=== PATIENT | male | born 1955 | race Caucasian/White ===

== ENCOUNTER 2020-01-31 07:28 | Emergency (ER) | payer OTHER, SELFPAY ==
[2020-01-31 07:33] VITALS: BP 135/83; PULSE 61; RESP 20; TEMP 36.5; O2SAT 97; BMI 35.4
--- NOTE | 2020-01-31 07:37 | ED_ITS ---
HPI - Abdominal Pain General: Chief Complaint: Abdominal Pain Stated Complaint: POSS KIDNEY STONES Time Seen by Provider: 01/31/20 07:32 Source: patient Mode of arrival: ambulatory Limitations: no limitations History of Present Illness: HPI narrative: Patient comes in today for complaints of left flank pain radiating down into his groin. Patient reports that the pain is similar to her previous kidney stone that he had in 2002. Patient reports that symptoms started last night. Patient states this morning he had severe episode of pain that caused him to become faint. Patient does not feel bad now but continues to have left lower quadrant pain that starts in his left flank and radiates around. Review of Systems General: Reports: 10 or more systems reviewed and unremarkable except in HPI and below : Reports: flank pain PFSH ED PFSH: Social History Smoking and tobacco status: never smoked Physical Exam Const: COMMON NORMALS: no acute distress and patient oriented x3 GENERAL APPEARANCE: cooperative HENMT: COMMON NORMALS: normocephalic and Normal external nose present HEAD & SCALP: normal to inspection and normocephalic NOSE: Normal external nose present Eye: GENERAL EYE: appearance normal, both eyes and all related structures Neck/C-Spine: COMMON NORMALS: full ROM Chest: COMMONS NORMALS: normal inspection of the chest Resp: COMMON NORMALS: normal respiratory effort EFFORT & INSPECTION: Yes able to speak in complete sentences Cardio: COMMON NORMALS: regular rate and regular rhythm RATE: regular rate RHYTHM: regular rhythm GI: COMMON NORMALS: non-tender : COMMON NORMALS: Yes no CVA tenderness BLADDER/KIDNEY EXAM: Yes no CVA tenderness Back/Pelvis: COMMON NORMALS: no CVA tenderness and thoracic and lumbar spine normal to inspection Extremity: COMMON NORMALS: normal to inspection Neuro: COMMON NORMALS: patient oriented x3 and moves all extremities Psych: COMMON NORMALS: mental status grossly normal and cooperative Skin: COMMON NORMALS: no rashes or lesions noted GENERAL SKIN EXAM: no rashes or lesions noted Course Vital Signs: Vital signs: Vital Signs Temperature 97.7 F 01/31/20 07:33 Pulse Rate 61 01/31/20 07:33 Respiratory Rate 20 H 01/31/20 07:55 Blood Pressure 135/83 01/31/20 07:33 Pulse Oximetry 98 01/31/20 07:55 MDM - Abdominal Pain MDM Narrative: Medical decision making narrative: Patient comes in today for complaints of left flank pain radiating into his groin. Patient appears well. Patient appears in moderate pain. Exam has no significant CVA tenderness or abdominal pain. Vital signs are normal. Differential diagnosis includes cystitis, renal colic, ureteral stone, prostatitis. CBC was normal. CMP was normal except for some mild elevation in alk phos. CT scan of the abdomen and pelvis for kidney stone noted a stone in the left bladder, with no hydronephrosis. Reviewed exam with patient with recommendations for follow-up. Patient reports understanding agreed to plan. Lab Data: Labs: Lab Results 01/31/20 01/31/20 01/31/20 Range/Units 07:49 07:49 08:28 WBC 9.2 (4.0-10.0) 10^3/ uL RBC 5.43 H (4.1-5.3) 10^6/u L Hgb 16.4 (11.7-16.6) g/dL Hct 48.3 (42.0-52.0) % MCV 89.0 (80-94) fL MCH 30.2 (28.0-34.0) pg MCHC 34.0 (30.0-36.0) g/dL RDW 12.8 (12.1-15.1) % Plt Count 174 (130-400) 10^3/c mm MPV 10.5 H (7.4-10.4) fL Neut % (Auto) 79.4 % Lymph % (Auto) 11.5 % [place] % (Auto) 8.2 % Eos % (Auto) 0.4 % Baso % (Auto) 0.1 % Neut # (Auto) 7.3 (1.8-7.7) 10^3/u L Lymph # (Auto) 1.1 (0.8-4.8) 10^3/u L [place] # (Auto) 0.8 (0.2-0.9) 10^3/u L Eos # (Auto) 0.0 (0.0-0.8) 10^3/u L Baso # (Auto) 0.0 (0.0-0.1) 10^3/u L Nucleated RBC % (a uto) 0 % Nucleated RBCs # 0.0 /100WBC Sodium 138 (136-145) mmol/L Potassium 3.9 (3.5-5.1) mmol/L Chloride 105 (98-107) mmol/L Carbon Dioxide 21 L (22-29) mmol/L Anion Gap 15.9 (5-19) BUN 13 (8-23) mg/dL Creatinine 1.2 (0.7-1.2) mg/dL GFR Calculation 61.3 L (90-130) mL/min Glucose 99 (65-115) mg/dL Calculated Osmolal ity 282 L (285-295) mOsm/k g Calcium 9.6 (8.5-10.5) mg/dL Total Bilirubin 0.6 (0.15-1.2) mg/dL AST 24 (0-40) U/L ALT 20 (0-41) U/L Alkaline Phosphata se 170 H (40-130) IU/L Total Protein 7.2 (6.6-8.7) g/dL Albumin 4.5 (3.5-5.2) g/dL Globulin 2.7 (1.3-4.6) g/dL Urine Color Yellow (Yellow) Urine Appearance Sl hazy (CLEAR) Urine pH 5 (5-7) Ur Specific Gravit y 1.025 (1.005-1.030) Urine Protein Neg (Negative) Urine Glucose (UA) Trace H (Normal) Urine Ketones Negative (Negative) Urine Blood 3+ H (Negative) Urine Nitrate Negative (Negative) Urine Bilirubin Neg (NEGATIVE) Urine Urobilinogen Norm (Negative) mg/dL Ur Leukocyte Latisha ase Negative (Negative) Urine RBC 50-80 H (0-2) /hpf Urine WBC 0-4 H (0-5) /hpf Ur Squamous Epith Cells 0-4 H (0-5) Amorphous Sediment Trace Urine Bacteria 1+ H (NONE) Hyaline Casts 0-4 H Urine Mucus 1+ Discharge Plan Discharge Patient Disposition: Home, Self-Care Clinical Impression: Renal calculi Condition: Stable Prescriptions: New hydrocodone-acetaminophen 5-325 mg tablet 1 tab PO Q6H PRN (Reason: pain) Qty: 7 RF: 0 ondansetron HCl 4 mg tablet 4 mg PO TID PRN (Reason: nausea and vomiting) Qty: 7 RF: 0 tamsulosin 0.4 mg capsule 0.4 mg PO DAILY Qty: 10 RF: 0 Discharge Orders: Discharge Order (Routine); Ordered 01/31/20 Ordered By: Caleb Garcia Discharge Diet: Usual diet Discharge Activity: Increase activity as tolerated Patient Instructions: Renal Colic (ED) Activity Restrictions/Additional Instructions: Drink plenty of water. Activity as tolerated. Follow-up with primary care in 1 week. Case management will assist you with follow-up for urology. Return to the ER for high fever or uncontrolled symptoms. Coding Level of Care Code ED It Risk And Assurance Senior Manager for Taye Fwd Exam Comprehensive
--- NOTE | 2020-01-31 07:43 | CT_ITS ---
WS: [id number] CT kidney stone [id number] REASON FOR EXAM: left flank, lower abd pain IV CONTRAST ADMINISTERED: None. TOTAL EXAM DLP: 1551.[address] scans at [facility] use at least one of these dose optimization techniques: automat ed exposure control; mA and/or kV adjustment per patient size (includes targeted exams where dose is matched to clinical indication); or iterative reconstruction. FINDINGS: Small hiatal hernia. Mediastinum normal scattered granulomas both lower lung patton. The liver is prominent no masses in the liver are seen. The stomach showed food debris but and mildly dilated but no obstruction. The gallbladder showed no stones and was normal. The spleen was normal. The adrenal glands right left were normal. The aorta and inferior vena cava appear to be of normal size. The right and left kidneys show a 2 mm stone in the collecting system of the right kidney and a hypod ense lesion over the superior pole of the left kidney measured 7 9 cm appears to be a cyst. The ureters on both the right and left side were of normal size. The appendix was normal the right colon show no abnormalities. Small bowel pattern were normal. Umbilical hernia with fat in the hernia no bowel. Small in size. The descending colon was normal. In the bladder there is a calcified density consistent with a stone in the bladder measures 1.42 mm. The prostate was normal the rectum normal. IMPRESSION: Stone on the left side of the urinary bladder Prominent cyst of the left kidney Small stone in the parenchyma of the right kidney Small hiatal hernia.
[2020-01-31] MEDS: ketorolac 30 mg/mL INJ 15 MG IVP (07:53)
[2020-01-31 07:55] VITALS: RESP 20; O2SAT 98
[2020-01-31] MEDS: morphine 4 mg/mL SDV 1 mL 2 MG IVP (07:55)
[2020-01-31 08:01] LABS: Basophils % 0.1 %; Eosinophils % 0.4 %; Hematocrit 48.3 % (42.0-52.0); Hemoglobin 16.4 g/dL (11.7-16.6); Lymphocytes # 1.1 10^3/uL (0.8-4.8); Lymphocytes % 11.5 %; Mean Corpuscular Hemoglobin 30.2 pg (28.0-34.0); Mean Platelet Volume 10.5 fL (7.4-10.4); Monocytes # 0.8 10^3/uL (0.2-0.9); Monocytes % 8.2 %; Neutrophils # 7.3 10^3/uL (1.8-7.7); Neutrophils % 79.4 %; Nucleated Red Blood Cells % 0 %; Platelet Count 174 10^3/cmm (130-400); Red Blood Count 5.43 10^6/uL (4.1-5.3); Red Cell Distribution Width 12.8 % (12.1-15.1); White Blood Count 9.2 10^3/uL (4.0-10.0)
[2020-01-31 08:14] LABS: Alanine Aminotransferase 20 U/L (0-41); Albumin Level 4.5 g/dL (3.5-5.2); Alkaline Phosphatase 170 IU/L (40-130); Anion Gap 15.9 (5-19); Aspartate Amino Transferase 24 U/L (0-40); Blood Urea Nitrogen 13 mg/dL (8-23); Calcium 9.6 mg/dL (8.5-10.5); Carbon Dioxide 21 mmol/L (22-29); Chloride 105 mmol/L (98-107); Globulin 2.7 g/dL (1.3-4.6); Glomerular Filtration Rate 61.3 mL/min (90-130); Glucose 99 mg/dL (65-115); Osmolality Calculated 282 mOsm/kg (285-295); Potassium 3.9 mmol/L (3.5-5.1); Sodium 138 mmol/L (136-145); Total Bilirubin 0.6 mg/dL (0.15-1.2); Total Protein 7.2 g/dL (6.6-8.7)
[2020-01-31 09:30] LABS: Add Urine Microscopic? YES; Bilirubin Urine Neg (NEGATIVE); Blood Urine 3+ (Negative); Glucose Urine UA Trace (Normal); Ketones Urine Negative (Negative); Leukocyte Esterase Urine Negative (Negative); Nitrate Urine Negative (Negative); Protein Urine Neg (Negative); Specific Gravity, Urine 1.025 (1.005-1.030); Urine Appearance SL Hazy (CLEAR); Urine Color Yellow (Yellow); Urobilinogen Urine Norm (Negative); pH Urine 5 (5-7)
[2020-01-31 09:31] LABS: RBC Urine 50-80 /hpf (0-2); Squamous Epithelial Cell Urine 0-4 (0-5); WBC Urine 0-4 /hpf (0-5)
[2020-01-31 09:32] LABS: Bacteria Urine 1+
[2020-01-31 09:33] LABS: Mucus Urine 1+
[2020-01-31 09:34] LABS: Add Urine Culture? Yes; Amorphous Sediment Urine TRACE; Hyaline Casts Urine 0-4
[2020-01-31 09:55] VITALS: BP 120/90; PULSE 78; RESP 18; O2SAT 97
--- NOTE | 2020-02-01 10:23 | DCPLANNER ---
compliance program manager had message to schedule a follow up appointment for patient with Dr. Longo. compliance program manager called the office of Dr. Longo, spoke with Alysia, gave clinic patients information. compliance program manager was told that patients information would be printed and given to Juju for review. Clinic will call patient with appointment information.
--- NOTE | 2020-02-13 07:56 | DCPLANNER ---
Patient had a follow up appointment scheduled for 02.04.[address] Longo. Patient did attend the appointment.
== END 2020-01-31 09:56 | disposition home or self-care (01) ==
PROVIDERS: Emergency Provider Nurse Practitioner Family
DX: N20.0 Calculus of kidney (principal)
CPT/HCPCS: 12345; 74176; 80053; 81001; 85025; 87086; 96374; 96375; 99282; 99283; J1885; J2270

== ENCOUNTER 2020-02-04 13:12 | Outpatient (CLI) | payer OTHER, SELFPAY ==
--- NOTE | 2020-02-04 13:15 | XRR_ITS ---
PROCEDURE INFORMATION: Exam: XR Abdomen, 1 View Exam date and time: 02/04/2020 1:31 PM Age: 64 years old Clinical indication: Condition or disease; Other: Calculi TECHNIQUE: Imaging protocol: XR of the abdomen. Views: Frontal supine view of the abdomen. 1 View. COMPARISON: CT kidney stone [id number] 01/31/2020 7:51 AM FINDINGS: Gastrointestinal tract: Normal. No bowel dilation. Bones/joints: Unremarkable. A caliceal stone is present in the central collecting system the right kidney measuring 4.4 mm. XR/XR KUB [id number] IMPRESSION: No acute findings. Caliceal stone central collecting system right kidney
== END 2020-02-04 13:13 | disposition home or self-care (01) ==
LOC: RAD 13:15
PROVIDERS: Visit Provider Nurse Practitioner Family
DX: N20.0 Calculus of kidney (principal)
CPT/HCPCS: 36415; 74018; 81001; 84153

== ENCOUNTER 2022-01-28 08:54 | Outpatient (CLI) | payer OTHER, SELFPAY | END 2022-01-28 08:55 | disposition home or self-care (01) | PROVIDERS: Visit Provider Urology | DX: R97.20 Elevated prostate specific antigen [PSA] (principal) | CPT/HCPCS: 84153 ==

== ENCOUNTER 2022-02-04 08:51 | Outpatient (CLI) | payer OTHER, SELFPAY ==
--- NOTE | 2022-02-04 09:04 | XR_ITS ---
WS: [id number] Exam: XR KUB [id number] Date/Time of Exam: 02/04/2022 9:10 AM Reason For Exam: stone Comparison 02/04/2020. 3 mm calcification superimposes the right kidney and probably represents a small stone. No bowel obst ruction or free air. No sign of organ enlargement. Small bilateral pelvic calcifications noted which are nonspecific. Bony structures are intact. XR/XR KUB [id number] IMPRESSION: 1. 3 mm calcification superimposes the right kidney and may represent a small r enal stone. Nonspecific bilateral pelvic calcifications. 2. No acute abdominal process.
== END 2022-02-04 08:52 | disposition home or self-care (01) ==
LOC: RAD 08:53
PROVIDERS: Visit Provider Urology
DX: N20.0 Calculus of kidney (principal); R97.20 Elevated prostate specific antigen [PSA]; R39.89 Other symptoms and signs involving the genitourinary system
CPT/HCPCS: 74018; 99202; 99214

== ENCOUNTER → 2022-02-17 13:47 | Outpatient (BNVA) | payer OTHER, SELFPAY | PROVIDERS: Visit Provider Urology | DX: R97.20 Elevated prostate specific antigen [PSA] (principal); R39.89 Other symptoms and signs involving the genitourinary system | CPT/HCPCS: 55700; 76872; 76942; 88305 ==

== ENCOUNTER 2022-03-08 08:37 | Outpatient (CLI) | payer OTHER, SELFPAY ==
[2022-03-08 09:31] LABS: Blood Urea Nitrogen 11 mg/dL (8-23); Glomerular Filtration Rate 67.4 mL/min (90-130)
[2022-03-08] MEDS: iohexol 350 mg/mL 100 mL Btl IV (09:56)
--- NOTE | 2022-03-08 10:30 | NM_ITS ---
WS: [id number] NUCLEAR MEDICINE WHOLE BODY BONE SCAN HISTORY: Elevated PSA, Abnormal Prostate Exam COMPARISON: CT abdomen and pelvis 03/08/2022 TECHNIQUE: The patient was injected with 24.7 mCi of Technetium 99m HDP and serial whole-body scintig parveen have been performed with anterior and posterior images. Additional large field of view imaging i nvolving the ribs and thoracic spine. Focal area of moderate intense uptake involving the LEFT anterior fourth rib. Additional similar upta ke involving the RIGHT T6 pedicle and the LEFT T7 pedicle or medial rib. No additional abnormality is noted within the ribs or spine. Mild degenerative changes at the ankles and mid tarsal articulations. Mild AC joint and glenohumeral joint arthritis. Normal soft tissue uptake in the kidneys. [place]/NM bone scan whole body* [id number] IMPRESSION: 1. Immediate foci of increased uptake involving the LEFT anterior fourth rib, LEFT T7 pedicle/rib and the RIGHT T6 pedicle. These may represent early metasta tic lesions from prostate cancer. These would probably not be visible radiograp hically therefore no radiograph performed today. A chest CT was recommended to evaluate the RIGHT interlobar enlarged lymph node as seen on the CT of the abdo men performed on 03/08/2022. This chest CT would better characterize the rib and thoracic lesions. 2. Mild degenerative changes at the ankles and feet and AC joints.
--- NOTE | 2022-03-08 13:30 | CT_ITS ---
WS: [id number] CT ABDOMEN AND PELVIS WITH AND WITHOUT CONTRAST HISTORY: Elevated PSA, Abnormal Prostate Exam TECHNIQUE: Unenhanced 5 mm axial imaging first performed through the abdomen. Post contrast imaging t hrough the abdomen and pelvis. Oral contrast has not been provided. Sagittal and coronal reformats a re submitted. MIP coronal delayed imaging. All CT scans at [facility] use at least one of thes e dose optimization techniques: automated exposure control; mA and/or kV adjustment per patient size (includes targeted exams where dose is matched to clinical indication); or iterative reconstruction. CONTRAST: Omnipaque 350; 95 mL IV. DLP: 3975.33 mGy.cm COMPARISON: 01/31/2020 noncontrast exam. Benign granuloma LEFT lower lobe. Seen only on the venous phase is a 15 mm RIGHT interlobar lymph nod e which is incompletely visualized. Heart size is normal. RIGHT kidney: Very mild perinephric stranding. Nonobstructing renal calcifications. At least 3 calcif ications are identified with the largest measuring 5 mm. No solid mass or obstruction. Good excretion from the kidney. No uroepithelial lesion or soft tissue mass identified. Distal ureter is not disten ded with contrast. LEFT kidney: Mild perinephric stranding around the LEFT kidney. No renal calcification or obstruction . Lobulated nonenhancing cyst from the upper pole measures 4.5 x 4.0 cm. No enhancing lesions. No uro epithelial lesion. Very distal ureters are not distended with contrast. Minimally distended urinary bladder. On the postcontrast images no areas of abnormal enhancement. The re is very mild bladder wall thickening which is probably due to underdistention. No filling defect o n the delayed images. Prostate gland is very minimally prominent measuring 3.5 x 4.1 x 5.2 cm. There is some variable enhan cement within the prostate gland especially involving the central and posterior RIGHT prostate gland. Seminal vesicles are mildly prominent. Liver and spleen are normal size. Splenic granulomata. Normal portal vein. Mildly contracted gallblad to. Normal pancreas. Normal adrenal glands. Mild atherosclerosis aorta. Good enhancement of the mese nteric arteries. No aneurysm. Mild atherosclerosis extends into the common iliac arteries. No ascites. No mesenteric or retroperitoneal adenopathy. No omental stranding. No GI tract obstruction. The appendix is normal. No colon obstruction. Supraumbilical abdominal wall hernia contains a loop of small bowel but there is no obstruction at th is time. The entire lumen is not protruding through the hernia. Additional small fat-containing umbil ical hernia. No osteoblastic or osteolytic bone lesions. Benign stable bone island RIGHT hip. CT/CT abdomen pelvis wo/w [id number] IMPRESSION: 1. No renal obstruction or solid mass. 2. Lobulated cyst upper pole LEFT kidney measures 4.5 x 4.0 cm. 3. RIGHT interlobar mildly enlarged lymph node. Lymph node is only partially v isualized on the venous phase. Recommend follow-up chest CT with IV contrast. T his is an abnormally enlarged lymph node. Reactive versus neoplastic. 4. Mildly heterogeneous prostate gland minimal enhancement in the RIGHT latera l posterior prostate. Minimal enlargement. 5. Negative urinary bladder. 6. Supraumbilical abdominal wall hernia contains contains a partial small kendall l loop. No obstruction at this time.
== END 2022-03-08 08:38 | disposition home or self-care (01) ==
LOC: RAD 08:39
PROVIDERS: Visit Provider Urology
DX: R39.89 Other symptoms and signs involving the genitourinary system (principal); R97.20 Elevated prostate specific antigen [PSA]; Q61.01 Congenital single renal cyst; K43.9 Ventral hernia without obstruction or gangrene
CPT/HCPCS: 74178; 78306; 82565; 84520; A9561

== ENCOUNTER → 2022-03-16 15:53 | Outpatient (BNVA) | payer OTHER, SELFPAY | PROVIDERS: Visit Provider Urology | DX: C61 Malignant neoplasm of prostate (principal); N20.9 Urinary calculus, unspecified | CPT/HCPCS: 99214 ==

== ENCOUNTER 2022-03-25 08:21 | Day surgery (SDC) | payer OTHER, SELFPAY ==
[2022-03-23 12:09] VITALS: BMI 34.7
[2022-03-25 08:48] VITALS: BP 145/101; PULSE 82; RESP 16; TEMP 36.5; O2SAT 95
[2022-03-25] MEDS: sodium chloride 0.9% 1,000 ML 30 ML IV (08:57)
--- NOTE | 2022-03-25 09:06 | ANES.PREANE2 ---
Pre-Anesthetic Assessment Height/Weight: Height 1.75 m Weight 106.594 kg Temp Pulse Resp BP Pulse Ox O2 Del Method 97.7 F 82 16 145/101 95 03/25/22 08:48 03/25/22 08:48 03/25/22 08:48 03/25/22 08:48 03/25/22 08:48 03/25/22 08:48 Operation Date: 03/25/22 10:00 Proposed Procedures p Colonoscopy 20201,z12.11(Not Applicable) - Roger Lam DO Familial anesthetic complications: None Was Beta Carley taken within 24 hours: N/A Was Clonidine taken within 24 hours: N/A Last intake: Intake Last Liquid Date 03/24/22 Last Liquid Time 20:00 Last Solid Date 03/23/22 Last Solid Time 20:00 Social No alcohol and No tobacco Exam alert, oriented x 3, clear to auscultation bilaterally and regular rate & rhythm Airway Mallampati: Class II Dentition: other (missing) Comments: Comments: Full franco metatatic prostate cancer Anesthetic Plan ASA status: 3 Anesthesia: MAC Risk of > 500 ml blood loss (7ml/kg in children): No Medications/Allergies Home Medications Medication Instructions Recorded Confirmed Last Taken Type cholecalciferol (vitamin D3) 10 10 mcg PO DAILY 02/04/22 03/25/22 03/23/22 History mcg (400 unit) capsule bicalutamide 50 mg tablet (Casodex) 50 mg PO DAILY Metastatic prostate 03/23/22 03/25/22 03/23/22 History cancer Allergies Allergy/AdvReac Type Severity Reaction Status Date / Time No Known Allergies Allergy Verified 03/25/22 08:47 Current Medications Generic Name Dose Route Start Last Admin Trade Name Freq PRN Reason Stop Dose Admin Sodium Chloride 1,000 mls @ 30 mls/hr 03/25/22 08:30 03/25/22 08:57 Sodium Chloride 0.9% IV 03/26/22 08:29 30 mls/hr .Q24H LAURI Administration PFSH Anesthesia Medical History (Updated 03/17/22 @ 12:50 by Kevin Longo MD) Abnormal prostate exam Calculus of distal left ureter Urolithiasis Surgical History (Updated 03/17/22 @ 12:50 by Kevin Longo MD) Hx of colonoscopy 14 yrs ago Family History Family/Other Hypertension Father , AT AGE 84 Hypertension Mother No problems noted. Social History Smoking and tobacco status: never smoked Alcohol intake: never Marital status: Current occupational status: retired History of recent travel: No Data Anesthesia Cardiac Studies: No Data to Display
--- NOTE | 2022-03-25 09:25 | P.HP_ITS ---
Providers/Chief Complaint Chief Complaint: Colon cancer screening History of Present Illness Baltazar Ramirez is a 66 year old male who presents for his second screening colonoscopy. His first 1 was within normal limits. He has no complaints. Nothing has changed since his last H&P Review of Systems General: Reports: 10 or more systems reviewed and unremarkable except in HPI and below Medications/Allergies Home Medications Medication Instructions Recorded Confirmed Last Taken Type cholecalciferol (vitamin D3) 10 10 mcg PO DAILY 02/04/22 03/25/22 03/23/22 History mcg (400 unit) capsule bicalutamide 50 mg tablet (Casodex) 50 mg PO DAILY Metastatic prostate 03/23/22 03/25/22 03/23/22 History cancer Allergies Allergy/AdvReac Type Severity Reaction Status Date / Time No Known Allergies Allergy Verified 03/25/22 08:47 PFSH Acute PFSH: Medical History Abnormal prostate exam Calculus of distal left ureter Urolithiasis Surgical History Hx of colonoscopy 14 yrs ago Family History Family/Other Hypertension Father , AT AGE 84 Hypertension Mother No problems noted. Social History Smoking and tobacco status: never smoked Alcohol intake: never Marital status: Current occupational status: retired History of recent travel: No Vitals/I&O/Wt Last Vital Signs Temp 97.7 F 03/25/22 08:48 Pulse 82 03/25/22 08:48 Resp 16 03/25/22 08:48 BP 145/101 03/25/22 08:48 Pulse Ox 95 03/25/22 08:48 O2 Del Method 03/25/22 08:48 Weight last 48 hrs Weight 235 lb Physical Exam Narrative: General : Patient is well developed , no acute distress, oriented x3 Head : Normal cephalic, a-traumatic. Ears : Pinnae and external canal are normal. Hearing is normal. Eyes : PERRLA, Sclera and injection are normal. No conjunctival discharge. Nose : Mucous membranes are without erythema. Throat : buccal mucosa is normal, gums are without significant recession or hypertrophy. Lungs : Equal chest rise bilaterally, no use of accessory muscles, trachea is midline. Cor : Rate and rhythm are normal. Abdomen : Soft, ND, NT, no g/r/m Extremities : No edema, no cyanosis or clubbing, dorsalis pedis pulses are present bilaterally, non-tender to palpation of calves. Upper extremities are normal bilaterally. Back : non-tender to palpation, no CVA tenderness. Neuro : CN II - XII intact, Upper and lower extremities have equal and full strength A&P Assessment and plan (1) Colon cancer screening: Status: Acute Plan Colonoscopy The risks and benefits of the procedure, including bleeding, infection, intestinal perforation requiring surgery, missed lesion, or explained to the patient. He is understanding of the risks and wishes to proceed. Attestations Medical Necessity Statement*: Patient will be discharged home after the procedure Coding Level of Care Code Acute Violin Mechanic for Taye Da Silva Diagnoses Colon cancer screening Z12.11
[2022-03-25 10:15] VITALS: BP 112/77; PULSE 76; RESP 18; TEMP 36.1; O2SAT 91
[2022-03-25 10:27] VITALS: BP 139/82; PULSE 78; RESP 18; TEMP 36.3; O2SAT 92
--- NOTE | 2022-03-25 12:48 | ANE.PACU2 ---
Inpatient post-anesthesia follow up: Airway intact: Yes Vital signs: Temperature 97.4 F Pulse Rate 78 Respiratory Rate 18 Blood Pressure 139/82 Pulse Oximetry 92 Oxygen Delivery Me thod Room Air Oxygen Flow Rate 2 Fraction of Inspir ed Oxygen Hydration adequate: Yes Nausea and vomiting: No Pain level: 1 Mental status: Baseline
== END 2022-03-25 10:40 | disposition home or self-care (01) ==
PROVIDERS: Visit Provider Surgery
PROC: 0DJD8ZZ Inspection of Lower Intestinal Tract, Via Natural or Artificial Opening Endoscopic (ICD-10-PCS; CPT 45378; principal; 2022-03-25 10:00)
DX: Z12.11 Encounter for screening for malignant neoplasm of colon (principal); K64.1 Second degree hemorrhoids; C61 Malignant neoplasm of prostate
CPT/HCPCS: 45378; J2704; J7030

== ENCOUNTER 2022-04-12 15:00 | Oncology outpatient (recurring) (ONCR) | payer OTHER, SELFPAY ==
[2022-04-12] MEDS: leuprolide 22.5 mg Kit IM (15:28)
[2022-04-12 15:35] VITALS: BP 145/101; PULSE 84; RESP 18; TEMP 37.2; O2SAT 97
== END 2022-04-28 23:59 | disposition home or self-care (01) ==
PROVIDERS: Visit Provider Internal Medicine Hematology & Oncology
DX: Z51.11 Encounter for antineoplastic chemotherapy (principal); C61 Malignant neoplasm of prostate; R97.21 Rising PSA following treatment for malignant neoplasm of prostate
CPT/HCPCS: 96402; 99205; J9217

== ENCOUNTER 2022-04-22 10:56 | Outpatient (CLI) | payer OTHER, SELFPAY ==
--- NOTE | 2022-04-22 11:00 | CT_ITS ---
WS: [id number] CT CHEST WITH INTRAVENOUS CONTRAST HISTORY: INTERLOBAR ENLARGED LYMPH NODE TECHNIQUE: Contiguous 5 mm axial imaging performed on the thorax. Coronal and sagittal reformats are submitted. All CT scans at [facility] use at least one of these dose optimization techniques: automated exposure control; mA and/or kV adjustment per patient size (includes targeted exams where dose is matched to clinical indication); or iterative reconstruction. CONTRAST: Omnipaque 350; 95 mL IV. DLP: 766.63 mGy.cm COMPARISON: Bone scan 03/08/[address] 03/08/2022 Lungs and central airway: Lungs are well-aerated. No mass, pulmonary nodule or pneumonia. No pleural effusion. Pleura: Normal. No pleural effusion. Heart and pericardium: Normal size heart with no pericardial effusion. Mediastinum and rayray: Indeterminate bilateral hilar lymph nodes. The largest group of lymph nodes at the LEFT hilum measures 3.4 x 1.6 cm. Interlobar lymph node on the RIGHT measures 1.7 cm and was prev iously described. There is an additional interlobar lymph node on the LEFT measuring 1.5 cm. Several smaller lymph nodes at the AP window and inferior RIGHT paratracheal region. No axillary lymph nodes. Vessels: Normal size aortic and pulmonary artery. No coronary artery calcifications. Chest wall and lower neck: No soft tissue masses. Upper abdomen: Small hiatal hernia. Mild hepatic steatosis. Incompletely visualized LEFT renal cyst w as recently described. No adrenal mass. Osseous structures: Very small osseous sclerotic lesions are identified within the T2 vertebral body and the T10 vertebral body. Neither of these were positive on the recent bone scan but may be too sma ll to be apparent. CT/CT chest w con* [id number] IMPRESSION: 1. Hilar and interlobar lymphadenopathy. This may be reactive adenopathy. The largest lymph node at the LEFT hilum measures 3.4 x 1.6 cm. Consider [address] follow-up with IV contrast to evaluate for any interval change. 2. No lung mass or nodule.
[2022-04-22] MEDS: iohexol 350 mg/mL 100 mL Btl IV (11:17)
== END 2022-04-22 10:57 | disposition home or self-care (01) ==
PROVIDERS: Visit Provider Urology
DX: R59.0 Localized enlarged lymph nodes (principal)
CPT/HCPCS: 71260

== ENCOUNTER 2022-05-24 12:43 | Oncology outpatient (recurring) (ONCR) | payer OTHER, SELFPAY ==
[2022-05-11 10:18] LABS: Basophils % 0.3 %; Eosinophils # 0.1 10^3/uL (0.0-0.8); Eosinophils % 1.2 %; Hematocrit 45.2 % (42.0-52.0); Hemoglobin 15.6 g/dL (11.7-16.6); Lymphocytes # 1.2 10^3/uL (0.8-4.8); Lymphocytes % 20.4 %; Mean Corpuscular HGB Conc 34.5 g/dL (30.0-36.0); Mean Corpuscular Hemoglobin 30.6 pg (28.0-34.0); Mean Corpuscular Volume 88.6 fl (80-94); Monocytes # 0.5 10^3/uL (0.2-0.9); Monocytes % 9.2 %; Neutrophils # 3.98 10^3/uL (1.8-7.7); Neutrophils % 68.7 %; Nucleated Red Blood Cells % 0 %; Platelet Count 185 10^3/cmm (130-400); Red Cell Distribution Width 12.5 % (12.1-15.1); White Blood Count 5.8 10^3/uL (4.0-10.0)
[2022-05-11 10:56] LABS: Alanine Aminotransferase 17 U/L (0-41); Albumin Level 4.1 g/dL (3.5-5.2); Alkaline Phosphatase 144 U/L (40-130); Anion Gap 16.9 (5-19); Aspartate Amino Transferase 21 U/L (0-40); Blood Urea Nitrogen 10 mg/dL (8-23); Calcium 9.6 mg/dL (8.5-10.5); Carbon Dioxide 20 mmol/L (22-29); Chloride 103 mmol/L (98-107); Globulin 3.1 g/dL (1.3-4.6); Glomerular Filtration Rate 67.4 mL/min (90-130); Glucose 96 mg/dL (65-115); Osmolality Calculated 281 mOsm/kg (285-295); Potassium 3.9 mmol/L (3.5-5.1); Sodium 136 mmol/L (136-145); Testosterone Total 17.1 ng/dL (193-740); Total Bilirubin 0.5 mg/dL (0.15-1.2); Total Protein 7.2 g/dL (6.6-8.7)
--- NOTE | 2022-05-24 13:27 | N.ONRAD NP_ITS ---
Radiation Oncology Consultation Patient Name: Baltazar Ramirez Date of : 1955 Date of Service: 05/24/2022 Attending Physician: Fareed Dumont M.D. Baltazar Ramirez was seen in consultation this afternoon at the request of the [facility] for consideration of prostate radiotherapy in the management of a recently diagnosed very high-risk prostate cancer. He initially was identified to have an elevated PSA level (44.9 ng/mL) in December. A digital rectal exam performed by Kevin Longo M.D. described an enlarged prostate with induration of the right lateral apex of the prostate. A TRUS biopsy of the prostate gland performed on February 17, 2022 identified a hypoechoic right prostate lobe. Biopsy specimens diagnosed (the pathology report was personally reviewed in Expanse) an adenocarcinoma with a Amisha score of 4+5=9 (Grade Group 5) involving cores obtained from the right lateral mid gland, right lateral base, right base, left apex, left mid gland, and left base and a [place] score of 4+4 (Grade Group 4) within the right lateral apex, right apex, and left lateral mid gland. Perineural invasion was identified. A nuclear bone scintigraphy scan (independently reviewed in Synapse) reported a focal area of uptake involving the left anterior fourth rib, sixth thoracic vertebral body pedicle, and left seventh thoracic vertebral body pedicle. An abdominopelvic CT scan did not demonstrate metastatic disease. A thoracic CT described bilateral hilar and mediastinal lymphadenopathy. Small sclerotic lesions were present in T2 and T10 vertebral bodies. He was evaluated by medical oncology and androgen deprivation therapy was started (Casodex and Eligard). Cycle 1 of Eligard was administered on April 12, 2022. A recent PSA level was 2.9 ng/mL and testosterone was 17.1 ng/dL. The patient was referred for radiotherapy treatment options. I discussed the patient's AJCC clinical stage IIIC (T2bN0) very high-risk prostate cancer and the National Comprehensive Cancer Network Guidelines recommending androgen deprivation therapy, external beam radiotherapy with or without brachytherapy and consideration for docetaxel chemotherapy. The admonition by the NCCN was established by the RTOG 0521 trial that enrolled patients with high-risk non-metastatic prostate cancer to receive androgen suppression plus radiotherapy with or without adjuvant docetaxel chemotherapy. This study demonstrated improved overall survival and disease-free survival in the chemotherapy arm. I also reviewed GETUG???12 study which also enrolled high-risk localized prostate cancer patients to androgen suppression and docetaxel chemotherapy with estramustine or androgen suppression alone. Updated results published in abstract form continued to demonstrate a relapse free survival with the administration of chemotherapy. I will request a PSMA scan to evaluate the imaging findings described. I would endorse a 7/2-week course of radiotherapy which will be initiated following neoadjuvant hormonal therapy if the PSMA scan does not disclose metastatic disease. A planning CT scan with contrast will be acquired prior to implementation of radiation treatment to delineate the clinical target volumes. I reviewed the potential toxicities of pelvic radiotherapy. The patient has verbalized understanding would like to proceed as recommended. The patient's medical treatment plan was discussed with Malachi Lopez M.D. Signed by: Dr. Fareed Dumont 06/18/2022 8:53:06 AM
== END 2022-05-28 23:59 | disposition home or self-care (01) ==
PROVIDERS: Nurse Practitioner; PCP Emergency Medicine Emergency Medical Services; Visit Provider Radiology Radiation Oncology
DX: C61 Malignant neoplasm of prostate (principal); C79.51 Secondary malignant neoplasm of bone; R59.0 Localized enlarged lymph nodes; Z79.818 Long term (current) use of other agents affecting estrogen receptors and estrogen levels; Z79.899 Other long term (current) drug therapy
CPT/HCPCS: 36415; 80053; 84153; 84403; 85025; 99205; 99214

== ENCOUNTER → 2022-05-31 08:36 | Outpatient (BNVA) | payer OTHER, SELFPAY | PROVIDERS: PCP Emergency Medicine Emergency Medical Services; Visit Provider Internal Medicine Pulmonary Disease | DX: R59.0 Localized enlarged lymph nodes (principal); C61 Malignant neoplasm of prostate; Z87.891 Personal history of nicotine dependence | CPT/HCPCS: 99204 ==

== ENCOUNTER 2022-06-28 08:49 | Oncology outpatient (recurring) (ONCR) | payer OTHER, SELFPAY ==
--- NOTE | 2022-06-18 11:21 | ONCRAD EPV_ITS ---
Radiation Oncology Follow-Up Note Patient Name: Baltazar Ramirez Date of : 1955 Date of Service: 06/18/2022 Attending Physician: Fareed Dumont M.D. Baltazar Ramirez returned to my office to discuss the results of a recent PSMA scan. He initially was identified to have an elevated PSA level (44.9 ng/mL) in December. A digital rectal exam performed by Kevin Longo M.D. described an enlarged prostate with induration of the right lateral apex of the prostate. A TRUS biopsy of the prostate gland performed on February 17, 2022 identified a hypoechoic right prostate lobe. Biopsy specimens diagnosed (the pathology report was personally reviewed in Expanse) an adenocarcinoma with a Amisha score of 4+5=9 (Grade Group 5) involving cores obtained from the right lateral mid gland, right lateral base, right base, left apex, left mid gland, and left base and a Amisha score of 4+4 (Grade Group 4) within the right lateral apex, right apex, and left lateral mid gland. Perineural invasion was identified. A nuclear bone scintigraphy scan reported a focal area of uptake involving the left anterior fourth rib, sixth thoracic vertebral body pedicle, and left seventh thoracic vertebral body pedicle. An abdominopelvic CT scan did not demonstrate metastatic disease. A thoracic CT described bilateral hilar and mediastinal lymphadenopathy. Small sclerotic lesions were present in T2 and T10 vertebral bodies. He was evaluated by medical oncology and androgen deprivation therapy was started (Casodex and Eligard). Cycle 1 of Eligard was administered on April 12, 2022. A PSMA scan (requested from the outside hospital and independently reviewed in Synapse) ordered on June 14, 2022 revealed abnormal activity in the left anterior fourth rib that was associated with a sclerotic lesion. I discussed The National Comprehensive Cancer Network Guidelines for prostate cancer patients with a low metastatic burden. Therapeutic options include ADT, ADT with an androgen biosynthesis or receptor inhibitor, ADT with Taxotere and androgen biosynthesis or receptor inhibitor, or ADT and EBRT to the primary tumor. I would anticipate a 4 week course of hypofractionated prostate radiotherapy. Prior to commencement of radiotherapy, a planning CT scan will be acquired to delineate the clinical target volume. I also discussed potential adverse events related to radiotherapy. The patient has verbalized understanding would like to proceed as advised. Signed by: Dr. Fareed Dumont 06/21/2022 2:06:31 PM
--- NOTE | 2022-06-22 | CT_ITS ---
Radiation Therapy Planning CT images; total exam DLP: 947.15 mGy-cm MTDD
--- NOTE | 2022-06-28 09:50 | N.ONRD TS_ITS ---
Radiation OncologyTreatment Summary Patient Name: Baltazar Ramirez Date of : 1955 Date of Service: 06/28/2022 Attending Physician: Fareed Dumont M.D. Baltazar Ramirez is a 67 year old white male diagnosed with a low-volume metastatic prostate cancer. He initially was identified to have an elevated PSA level (44.9 ng/mL) in December. A digital rectal exam performed by Kevin Longo M.D. described an enlarged prostate with induration of the right lateral apex of the prostate. A TRUS biopsy of the prostate gland performed on February 17, 2022 identified a hypoechoic right prostate lobe. Biopsy specimens diagnosed an adenocarcinoma with a Amisha score of 4+5=9 (Grade Group 5) involving cores obtained from the right lateral mid gland, right lateral base, right base, left apex, left mid gland, and left base and a Amisha score of 4+4 (Grade Group 4) within the right lateral apex, right apex, and left lateral mid gland. Perineural invasion was identified. A nuclear bone scintigraphy scan reported a focal area of uptake involving the left anterior fourth rib, sixth thoracic vertebral body pedicle, and left seventh thoracic vertebral body pedicle. An abdominopelvic CT scan did not demonstrate metastatic disease. A thoracic CT described bilateral hilar and mediastinal lymphadenopathy. Small sclerotic lesions were present in T2 and T10 vertebral bodies. He was evaluated by medical oncology and androgen deprivation therapy was started (Casodex and Eligard). Cycle 1 of Eligard was administered on April 12, 2022. A PSMA scan ordered on June 14, 2022 revealed abnormal activity in the left anterior fourth rib that was associated with a sclerotic lesion. The patient has received 9 Gy of a prescribed 60 Polanco to the prostate delivered with an intensity modulated radiotherapy plan utilizing a step and shoot treatment technique. Upon review of systems, he denied any gastrointestinal of genitourinary complaints related to radiotherapy. He does have nocturia (4 times). On physical examination, the patient weighed 242 lbs. His temperature was 97.2 ???F and the blood pressure was 142/95 mmHg. The pulse was 79 bpm and his respiratory rate was 16. There was no erythema within the treatment patton. Continue prostate radiotherapy as prescribed. Signed by: Dr. Fareed Dumont 06/28/2022 9:48:19 AM
== END 2022-06-28 23:59 | disposition home or self-care (01) ==
PROVIDERS: PCP Emergency Medicine Emergency Medical Services; Visit Provider Radiology Radiation Oncology
DX: Z53.9 Procedure and treatment not carried out, unspecified reason (principal); C61 Malignant neoplasm of prostate; N28.1 Cyst of kidney, acquired; Z79.818 Long term (current) use of other agents affecting estrogen receptors and estrogen levels; Z79.899 Other long term (current) drug therapy
CPT/HCPCS: 77300; 77301; 77334; 77338; 77385; 77470; 99214

== ENCOUNTER → 2022-07-13 14:24 | Outpatient (BNVA) | payer OTHER, SELFPAY | PROVIDERS: PCP Emergency Medicine Emergency Medical Services; Visit Provider Internal Medicine Hematology & Oncology | DX: C61 Malignant neoplasm of prostate (principal) | CPT/HCPCS: 99214 ==

== ENCOUNTER 2022-07-26 08:53 | Oncology outpatient (recurring) (ONCR) | payer OTHER, SELFPAY ==
--- NOTE | 2022-07-05 09:25 | ONCRAD TMN_ITS ---
Radiation Oncology Treatment Management Note Patient Name: Baltazar Ramirez Date of : 1955 Date of Service: 07/05/2022 Attending Physician: Fareed Dumont M.D. Baltazar Ramirez is a 67 year old white male diagnosed with a low-volume metastatic prostate cancer. He initially was identified to have an elevated PSA level (44.9 ng/mL) in December. A digital rectal exam performed by Kevin Longo M.D. described an enlarged prostate with induration of the right lateral apex of the prostate. A TRUS biopsy of the prostate gland performed on February 17, 2022 identified a hypoechoic right prostate lobe. Biopsy specimens diagnosed an adenocarcinoma with a Amisha score of 4+5=9 (Grade Group 5) involving cores obtained from the right lateral mid gland, right lateral base, right base, left apex, left mid gland, and left base and a [place] score of 4+4 (Grade Group 4) within the right lateral apex, right apex, and left lateral mid gland. Perineural invasion was identified. A nuclear bone scintigraphy scan reported a focal area of uptake involving the left anterior fourth rib, sixth thoracic vertebral body pedicle, and left seventh thoracic vertebral body pedicle. An abdominopelvic CT scan did not demonstrate metastatic disease. A thoracic CT described bilateral hilar and mediastinal lymphadenopathy. Small sclerotic lesions were present in T2 and T10 vertebral bodies. He was evaluated by medical oncology and androgen deprivation therapy was started (Casodex and Eligard). Cycle 1 of Eligard was administered on April 12, 2022. A PSMA scan ordered on June 14, 2022 revealed abnormal activity in the left anterior fourth rib that was associated with a sclerotic lesion. The patient has received 24 Gy of a prescribed 60 Polanco to the prostate delivered with an intensity modulated radiotherapy plan utilizing a step and shoot treatment technique. Upon review of systems, he has nocturia (4 times). On physical examination, the patient weighed 243 lbs. His temperature was 96.8 ???F and the blood pressure was 160/99 mmHg. The pulse was 72 bpm and his respiratory rate was 18. There was no erythema within the treatment patton. Continue prostate radiotherapy as planned. I will prescribe Flomax. Signed by: Dr. Fareed Dumont 07/05/2022 9:24:16 AM
--- NOTE | 2022-07-12 09:15 | ONCRAD TMN_ITS ---
Radiation Oncology Treatment Management Note Patient Name: Baltazar Ramirez Date of : 1955 Date of Service: 07/12/2022 Attending Physician: Fareed Dumont M.D. Baltazar Ramirez is a 67 year old white male diagnosed with a low-volume metastatic prostate cancer. He initially was identified to have an elevated PSA level (44.9 ng/mL) in December. A digital rectal exam performed by Kevin Longo M.D. described an enlarged prostate with induration of the right lateral apex of the prostate. A TRUS biopsy of the prostate gland performed on February 17, 2022 identified a hypoechoic right prostate lobe. Biopsy specimens diagnosed an adenocarcinoma with a [place] score of 4+5=9 (Grade Group 5) involving cores obtained from the right lateral mid gland, right lateral base, right base, left apex, left mid gland, and left base and a Amisha score of 4+4 (Grade Group 4) within the right lateral apex, right apex, and left lateral mid gland. Perineural invasion was identified. A nuclear bone scintigraphy scan reported a focal area of uptake involving the left anterior fourth rib, sixth thoracic vertebral body pedicle, and left seventh thoracic vertebral body pedicle. An abdominopelvic CT scan did not demonstrate metastatic disease. A thoracic CT described bilateral hilar and mediastinal lymphadenopathy. Small sclerotic lesions were present in T2 and T10 vertebral bodies. He was evaluated by medical oncology and androgen deprivation therapy was started (Casodex and Eligard). Cycle 1 of Eligard was administered on April 12, 2022. A PSMA scan ordered on June 14, 2022 revealed abnormal activity in the left anterior fourth rib that was associated with a sclerotic lesion. The patient has received 36 Gy of a prescribed 60 Polanco to the prostate delivered with an intensity modulated radiotherapy plan utilizing a step and shoot treatment technique. Upon review of systems, he described diarrhea. On physical examination, the patient weighed 242 lbs. His temperature was 97.6 ???F and the blood pressure was 147/104 mmHg. The pulse was 93 bpm and his respiratory rate was 18. There was no erythema within the treatment patton. Continue prostate radiotherapy as prescribed. I will prescribe Imodium. Signed by: Dr. Fareed Dumont 07/12/2022 9:18:15 AM
[2022-07-13 14:51] LABS: Basophils % 0.3 %; Eosinophils # 0.2 10^3/uL (0.0-0.8); Eosinophils % 2.8 %; Hemoglobin 14.3 g/dL (11.7-16.6); Lymphocytes # 1.2 10^3/uL (0.8-4.8); Lymphocytes % 15.4 %; Mean Corpuscular HGB Conc 34.9 g/dL (30.0-36.0); Mean Corpuscular Hemoglobin 31.3 pg (28.0-34.0); Mean Corpuscular Volume 89.7 fl (80-94); Mean Platelet Volume 9.9 fL (7.4-10.4); Monocytes # 0.6 10^3/uL (0.2-0.9); Monocytes % 8.1 %; Neutrophils # 5.52 10^3/uL (1.8-7.7); Nucleated Red Blood Cells % 0 %; Platelet Count 160 10^3/cmm (130-400); Red Blood Count 4.57 10^6/uL (4.1-5.3); Red Cell Distribution Width 12.6 % (12.1-15.1); White Blood Count 7.6 10^3/uL (4.0-10.0)
[2022-07-13 15:21] LABS: Alanine Aminotransferase 17 U/L (0-41); Albumin Level 3.8 g/dL (3.5-5.2); Alkaline Phosphatase 134 U/L (40-130); Anion Gap 15.6 (5-19); Aspartate Amino Transferase 24 U/L (0-40); Blood Urea Nitrogen 15 mg/dL (8-23); Calcium 9.4 mg/dL (8.5-10.5); Carbon Dioxide 25 mmol/L (22-29); Chloride 102 mmol/L (98-107); Globulin 3.2 g/dL (1.3-4.6); Glomerular Filtration Rate 84.7 mL/min (90-130); Glucose 82 mg/dL (65-115); Osmolality Calculated 288 mOsm/kg (285-295); Potassium 3.6 mmol/L (3.5-5.1); Sodium 139 mmol/L (136-145); Total Bilirubin 0.6 mg/dL (0.15-1.2)
[2022-07-13] MEDS: leuprolide 22.5 mg Kit IM (16:20)
--- NOTE | 2022-07-19 10:10 | ONCRAD TMN_ITS ---
Radiation Oncology Weekly Treatment Management Patient: James Price MR#: [id number] : 1955> Attending Physician: Dr. Scotty Bowles Date of Service: 07/19/2022 Referring Physician(s) : Diagnosis: C61 - Malignant neoplasm of prostate, Diagnosed 02/17/2022 (Active) Stage IVB, T1c, N0, M1b, P>=20, G5 Radiotherapy to date: Course: Prostate Ca 2021, Treatment Site: Prostate Ca - Low-, Volume Mets, Ref. ID: [id number], Energy: 15X, Dose/Fx (cGy): 300, #Fx: , Dose Correction (cGy): 0, Total Dose (cGy): 5,100, Start Date: 06/24/2022, Elapsed Days: 25 Reason for visit: The patient is being seen today as part of their regularly scheduled weekly on treatment visits to assess for acute toxicities from radiotherapy. Review of Systems: Mr. Ramirez has received 17 of 20 treatments. His performance status is stable. He denies fatigue. He developed diarrhea last week. Imodium A-D has been very effective. He has a slow urinary stream with only slight discomfort at the initiation of urination. He is taking Flomax once daily, though he has not noticed much benefit. I told him he could try to Flomax, either 2 at one time or 1 twice per day. I told him it may or may not be beneficial. We discussed that it would be okay to continue Imodium A-D and Flomax as needed after radiation is completed. He tells me that he will be getting a port and chemotherapy in the near future. Vital Signs: Performed on 07/19/2022 9:26 AM BMI - 35.442 kg/m2 (high), Height - 69 in, Weight - 240 lbs, Temperature - 97.1 f, Pulse - 84 /min, Respiration - 18 /min, O2 Sat - 98 %, Pain - 0, Fatigue - 0 and BP - 138/ 94 mm(hg)(/high). Physical Exam: Alert, oriented, no acute distress. Ambulatory without assistance. He has no skin reaction over the lower pelvis, inguinal areas, or intergluteal fold. Imaging: Radiation therapy imaging related to accurate target localization (i.e. KV, MV and CBCT) was reviewed. Appropriate changes, if any, were made to ensure treatment accuracy. Plan: Continue treatment per plan. Systemic therapy per Dr. Lopez. Discussion as noted above. Signed by: Dr. Scotty Bowles 07/19/2022 10:08:57 AM
--- NOTE | 2022-07-26 09:13 | N.ONRD TS_ITS ---
Radiation OncologyTreatment Summary Patient Name: Baltazar Ramirez Date of : 1955 Date of Service: 07/26/2022 Attending Physician: Fareed Dumont M.D. Baltazar Ramirez has completed prostate radiotherapy for the management of a low-volume metastatic prostate cancer. He initially was identified to have an elevated PSA level (44.9 ng/mL) in December. A digital rectal exam performed by Kevin Longo M.D. described an enlarged prostate with induration of the right lateral apex of the prostate. A TRUS biopsy of the prostate gland performed on February 17, 2022 identified a hypoechoic right prostate lobe. Biopsy specimens diagnosed an adenocarcinoma with a [place] score of 4+5=9 (Grade Group 5) involving cores obtained from the right lateral mid gland, right lateral base, right base, left apex, left mid gland, and left base and a Amisha score of 4+4 (Grade Group 4) within the right lateral apex, right apex, and left lateral mid gland. Perineural invasion was identified. A nuclear bone scintigraphy scan reported a focal area of uptake involving the left anterior fourth rib, sixth thoracic vertebral body pedicle, and left seventh thoracic vertebral body pedicle. An abdominopelvic CT scan did not demonstrate metastatic disease. A thoracic CT described bilateral hilar and mediastinal lymphadenopathy. Small sclerotic lesions were present in T2 and T10 vertebral bodies. He was evaluated by medical oncology and androgen deprivation therapy was started (Casodex and Eligard). Cycle 1 of Eligard was administered on April 12, 2022. A PSMA scan ordered on June 14, 2022 revealed abnormal activity in the left anterior fourth rib that was associated with a sclerotic lesion. Daily radiotherapy was administered between the dates of June 24, 2022 through July 26, 2022. A prescribed dose of 60 Gy was delivered in 20 fractions encompassing 33 elapsed days. The prostate gland and seminal vesicles were treated utilizing an IMRT plan using a step and shoot treatment technique. The plan arranged seven gantry angles (0???, 30???, 60???, 150???, 210???, 300???, and 330???) replicating an arc. The collimator rotation was 0???. The field sizes spanned between 7.8 cm x 6.3 cm to 8.3 cm x 6.3 cm. The SSDs measured a minimum of 83.1 cm to a maximum of 86.5 cm. The ports delivered 22 MU, 230 MU, 189 MU, 162 MU, 166 MU, 215 MU, and 220 MU corresponding to the gantry angles described. All treatments were performed on the [employer] linear accelerator with an isocentric technique. The dose was calculated by Anisotropic Analytic Algorithm. A photon energy of 6 MV was prescribed. The plan was normalized to deliver 100% of the prescription dose to 95% of the planning target volume. Signed by: Dr. Fareed Dumont 07/26/2022 9:11:10 AM
--- NOTE | 2022-07-26 09:54 | ONCRAD TMN_ITS ---
Radiation Oncology Treatment Management Note Patient Name: Baltazar Ramirez Date of : 1955 Date of Service: 07/26/2022 Attending Physician: Fareed Dumont M.D. Baltazar Ramirez is a 67 year old white male diagnosed with a low-volume metastatic prostate cancer. He initially was identified to have an elevated PSA level (44.9 ng/mL) in December. A digital rectal exam performed by Kevin Longo M.D. described an enlarged prostate with induration of the right lateral apex of the prostate. A TRUS biopsy of the prostate gland performed on February 17, 2022 identified a hypoechoic right prostate lobe. Biopsy specimens diagnosed an adenocarcinoma with a [place] score of 4+5=9 (Grade Group 5) involving cores obtained from the right lateral mid gland, right lateral base, right base, left apex, left mid gland, and left base and a Amisha score of 4+4 (Grade Group 4) within the right lateral apex, right apex, and left lateral mid gland. Perineural invasion was identified. A nuclear bone scintigraphy scan reported a focal area of uptake involving the left anterior fourth rib, sixth thoracic vertebral body pedicle, and left seventh thoracic vertebral body pedicle. An abdominopelvic CT scan did not demonstrate metastatic disease. A thoracic CT described bilateral hilar and mediastinal lymphadenopathy. Small sclerotic lesions were present in T2 and T10 vertebral bodies. He was evaluated by medical oncology and androgen deprivation therapy was started (Casodex and Eligard). Cycle 1 of Eligard was administered on April 12, 2022. A PSMA scan ordered on June 14, 2022 revealed abnormal activity in the left anterior fourth rib that was associated with a sclerotic lesion. The patient has received 60 Gy of a prescribed 60 Polanco to the prostate delivered with an intensity modulated radiotherapy plan utilizing a step and shoot treatment technique. Upon review of systems, he continues to have LUTS. Flomax has not improved his symptoms. On physical examination, the patient weighed 241 lbs. His temperature was 97.6 ???F and the blood pressure was 126/81 mmHg. The pulse was 84 bpm and his respiratory rate was 17. Radiotherapy completed today. He will discontinue Flomax. Signed by: Dr. Fareed Dumont 07/26/2022 9:52:43 AM
== END 2022-07-28 23:59 | disposition home or self-care (01) ==
PROVIDERS: Internal Medicine Hematology & Oncology; Nurse Practitioner Family; PCP Emergency Medicine Emergency Medical Services; Visit Provider Radiology Radiation Oncology
DX: C61 Malignant neoplasm of prostate (principal); Z51.0 Encounter for antineoplastic radiation therapy
CPT/HCPCS: 36415; 77014; 77336; 77385; 77427; 80053; 84153; 85025; 96402; 99024; 99203; J9217

== ENCOUNTER 2022-07-29 11:15 | Day surgery (SDC) | payer OTHER, SELFPAY ==
[2022-07-28 11:03] VITALS: BMI 35.4
--- NOTE | 2022-07-29 11:28 | SC_ITS ---
WS: [id number] C-arm FL for CVA [id number] REASON FOR EXAM: Mediport placement FINDINGS: Chemotherapy port in place over the left anterolateral chest with transvenous left subclavian vein ca theter placement with the tip in the mid to distal superior vena cava. No pneumothorax. SC/C-arm FL for CVA [id number] IMPRESSION: Chemotherapy port and catheter placement as above.
--- NOTE | 2022-07-29 11:28 | XRR_ITS ---
PROCEDURE INFORMATION: Exam: XR Chest Exam date and time: 07/29/2022 1:43 PM Age: 67 years old Clinical indication: Device placement; Other: Mediport placement; Prior surgery; Surgery date: Post-operative (0-2 days); Additional info: Status post mediport placement TECHNIQUE: Imaging protocol: Radiologic exam of the chest. Views: 1 view. COMPARISON: CT chest w con* [id number] 04/22/2022 11:13 AM FINDINGS: Tubes, catheters and devices: There is a left subclavian port with the catheter tip in the superior vena cava. Lungs: Prior pulmonary granulomatous disease. No pneumonia or pulmonary edema. Pleural spaces: No pleural effusion or pneumothorax. Heart/Mediastinum: The cardiac silhouette is not enlarged. The mediastinal contours are normal. Bones/joints: There is diffuse idiopathic skeletal hyperostosis. XR/XR chest 1V portable [id number] IMPRESSION: 1. Port catheter tip in the superior vena cava. 2. No pneumothorax.
[2022-07-29 11:53] VITALS: BP 163/108; PULSE 72; RESP 17; TEMP 36.4; O2SAT 97
[2022-07-29] MEDS: sodium chloride 0.9% 1,000 ML 30 ML IV (12:11)
--- NOTE | 2022-07-29 12:37 | W.PM.OPSUD ---
Surgery/Procedure H&P Update DATE OF PROCEDURE: July 29, 2022 DATE H&P PERFORMED: 07/20/22 PREOP DIAGNOSIS: Prostate Cancer PLANNED PROCEDURE: Operation Date: 07/29/22 12:45 Proposed Procedures p [id number] port placement C61(Not Applicable) - Roger Lam DO
[2022-07-29] MEDS: ceFAZolin 2,000 MG in sodium chloride 0.9% (plus) 50 ML 100 MG IV (12:54)
--- NOTE | 2022-07-29 12:55 | ANES.PREANE2 ---
Pre-Anesthetic Assessment Height/Weight: Height 1.75 m Weight 108.862 kg Temp Pulse Resp BP Pulse Ox O2 Del Method 97.6 F 72 17 163/108 97 07/29/22 11:53 07/29/22 11:53 07/29/22 11:53 07/29/22 11:53 07/29/22 11:53 07/29/22 11:53 Preop Diagnosis: Prostate Cancer Operation Date: 07/29/22 12:45 Proposed Procedures p [id number] port placement C61(Not Applicable) - Roger Lam DO Familial anesthetic complications: none Was Beta Carley taken within 24 hours: N/A Was Clonidine taken within 24 hours: N/A Last intake: Intake Last Liquid Date 07/28/22 Last Liquid Time 20:00 Last Solid Date 07/28/22 Last Solid Time 20:00 Social No alcohol and No tobacco Exam alert, oriented x 3, clear to auscultation bilaterally and regular rate & rhythm Airway Submandibular: within normal limits Cervical ROM: within normal limits Mallampati: Class II Dentition: full Prostatic CA Metabolic Morbid Obesity Anesthetic Plan ASA status: 3 Anesthesia: MAC Medications/Allergies Home Medications Medication Instructions Recorded Confirmed Last Taken Type cholecalciferol (vitamin D3) 10 10 mcg PO DAILY 02/04/22 07/29/22 07/27/22 History mcg (400 unit) capsule tamsulosin 0.4 mg capsule (Flomax) 0.4 mg PO DAILY #30 caps 07/05/22 07/29/22 07/27/22 Rx Allergies Allergy/AdvReac Type Severity Reaction Status Date / Time No Known Allergies Allergy Verified 07/29/22 11:48 Current Medications Generic Name Dose Route Start Last Admin Trade Name Freq PRN Reason Stop Dose Admin Sodium Chloride 1,000 mls @ 30 mls/hr 07/29/22 11:30 07/29/22 12:11 Sodium Chloride 0.9% IV 07/30/22 11:29 30 mls/hr .Q24H LAURI Administration PFSH Anesthesia Medical History Abnormal prostate exam Calculus of distal left ureter BILL (obstructive sleep apnea) Urolithiasis Surgical History Hx of colonoscopy 14 yrs ago Family History Family/Other Hypertension Cancer Uncle - prostate Aunt - Uterine Father , AT AGE 84 Hypertension CAD (coronary artery disease) Mother No problems noted. Denies family history of Diabetes Clotting disorder Dementia Hyperlipidemia Psychiatric illness Chronic kidney disease (CKD) Suicide Anesthesia complication Bleeding disorder Lung disease Stroke Social History Smoking and tobacco status: former smoker Quit status (tobacco): has quit using tobacco Year quit tobacco: 2006 Former quit date comment: 1ppd x 25 years Alcohol intake: former Marital status: Current occupational status: retired History of recent travel: No Data Anesthesia Cardiac Studies: No Data to Display
[2022-07-29] MEDS: heparin, porcine 1,000 unit/mL INJ 10 mL 10000 UNIT INJECTION (13:15)
--- NOTE | 2022-07-29 13:33 | P.OP_ITS ---
Operative Report Date of procedure: July 29, 2022 Pre-op diagnosis: Preop Diagnosis Prostate Cancer Post-op diagnosis: same Procedure done: Mediport placement Implants: PowerPort Surgeon: Dr. Roger Lam, DO Anesthesia: MAC Estimated blood loss (mL): 5 Complications: None apparent Brief History: Is a very pleasant 67-year-old gentleman with prostate cancer. Mediport placement was requested for chemotherapy infusion. The risks and benefits were explained and documented. Procedure: Patient was taken to the operating room and placed supine on the operating room table. All bony prominences were padded. She was given IV sedation and monitored throughout the case by the anesthesia personnel. SCDs were placed and turned on. The arms were tucked to the side. Patient received Ancef? 2 g preoperatively IV. The bilateral chest wall was prepped and draped in usual sterile fashion using chlorhexidine base prep. Sterile drapes were applied. We did procedure pause prior to beginning. ? An 18 gauge needle was placed in the left subclavian vein. Dark, nonpulsatile blood was aspirated. A guidewire was placed through the needle centrally toward the atrial/vena caval junction. Fluoroscopy visualized good placement. The needle was removed and the guidewire was clipped to the drape with a hemostat. ? Further local anesthetic was infiltrated in the soft tissues of the left chest wall and a #15 blade was used to make a horizontal skin incision. A subcutaneous Mediport pocket was created using Bovie cautery, dissecting down through the skin and subcutaneous tissues. Meticulous hemostasis was achieved. The Mediport was sutured in position using 3-0 vicryl suture x2 stitches. ? A #15 blade was used to make a small skin isai around the guidewire insertion area. The Mediport tubing was tunneled through the subcutaneous tissues up to the needle insertion location. ? A dilator with a peel-away sheath was placed over the guidewire and placed centrally. After measuring with fluoroscopy, the Mediport tubing was cut to length so that the tip would end at the atrial/vena caval junction. The inner cannula and the guidewire were removed, leaving the dilator sheath in place. The Mediport was flushed. The tip of the catheter was inserted through the peel-away sheath and the peel-away sheath removed in the standard fashion. The Mediport was accessed with a straight Peralta needle and dark, nonpulsatile blood was aspirated and flushed using heparinized saline to hep-lock the Mediport.? Final fluoroscopy visualization showed no kink in the catheter and the tip of the Mediport tubing near the atrial/vena caval junction. ? Both skin incisions were thoroughly irrigated and suctioned dry. Meticulous hemostasis noted. The Mediport incision was closed using interrupted 3-0 Vicryl suture for the deep dermal layer and 4-0 Vicryl run to close the skin edge. The left subclavian insertion site incision was closed with a single subcuticular stitch. Skin glue was applied as a topical dressing. This was allowed to dry. Attention was then brought to the left supraclavicular lymph node.? 1% lidocaine with epinephrine was used to anesthetize the area over the lymph node.? A 15 bl zoran scalpel was then used to make a 2.5 cm oblique incision over the area of interest.? Meticulous and careful dissection was performed with Bovie cautery down through the platysma's and the sternocleidomastoid muscle was split bluntly.? I then encountered a large black lymph node which I excised using Bovie cautery.? Specimen was passed off fresh to pathology.? Hemostasis achieved with electrocautery.? Rosie was then placed into the wound bed.? Dermis was approximated with 3-0 Vicryl in an interrupted subcuticular fashion.? Skin glue was applied. Patient was awakened from anesthesia and transferred via her cart to the recovery room in stable condition. All needle, sponge, and instrument counts were correct per the operating personnel x2 counts.
[2022-07-29 13:36] VITALS: BP 132/69; PULSE 80; RESP 14; TEMP 36.3; O2SAT 98
[2022-07-29 13:40] VITALS: BP 115/80; PULSE 78; RESP 15; O2SAT 96
[2022-07-29 13:49] VITALS: BP 156/94; PULSE 71; RESP 15; TEMP 36.6; O2SAT 95
[2022-07-29 14:04] VITALS: BP 122/88; PULSE 74; RESP 16; O2SAT 96
--- NOTE | 2022-07-29 15:55 | ANE.PACU2 ---
Inpatient post-anesthesia follow up: Airway intact: Yes Vital signs: Temperature 98 F Pulse Rate 74 Respiratory Rate 16 Blood Pressure 122/88 Pulse Oximetry 96 Oxygen Delivery Me thod Room Air Oxygen Flow Rate 6 Fraction of Inspir ed Oxygen Hydration adequate: Yes Nausea and vomiting: No Pain level: 1 Mental status: Baseline
== END 2022-07-29 14:25 | disposition home or self-care (01) ==
PROVIDERS: PCP Emergency Medicine Emergency Medical Services; Visit Provider Surgery
PROC: (CPT 36561; principal; 2022-07-29 12:35)
DX: C61 Malignant neoplasm of prostate (principal); E66.01 Morbid (severe) obesity due to excess calories; Z68.35 Body mass index [BMI] 35.0-35.9, adult; G47.33 Obstructive sleep apnea (adult) (pediatric); Z87.891 Personal history of nicotine dependence
CPT/HCPCS: 36561; 71045; 77001; C1788; J0690; J1644; J2704; J7030

== ENCOUNTER → 2022-08-10 10:55 | Outpatient (BNVA) | payer OTHER, SELFPAY | PROVIDERS: PCP Emergency Medicine Emergency Medical Services; Visit Provider Surgery | DX: Z95.828 Presence of other vascular implants and grafts (principal) | CPT/HCPCS: 99213 ==

== ENCOUNTER 2022-08-25 11:42 | Oncology outpatient (recurring) (ONCR) | payer OTHER, SELFPAY ==
[2022-08-02 08:22] LABS: Basophils % 0.4 %; Eosinophils # 0.2 10^3/uL (0.0-0.8); Eosinophils % 2.9 %; Hemoglobin 14.8 g/dL (11.7-16.6); Lymphocytes # 0.9 10^3/uL (0.8-4.8); Lymphocytes % 15.8 %; Mean Corpuscular HGB Conc 34.4 g/dL (30.0-36.0); Mean Corpuscular Hemoglobin 31.2 pg (28.0-34.0); Mean Corpuscular Volume 90.7 fl (80-94); Mean Platelet Volume 9.5 fL (7.4-10.4); Monocytes # 0.6 10^3/uL (0.2-0.9); Monocytes % 10.3 %; Neutrophils # 3.84 10^3/uL (1.8-7.7); Neutrophils % 70.2 %; Nucleated Red Blood Cells % 0 %; Platelet Count 180 10^3/cmm (130-400); Red Blood Count 4.74 10^6/uL (4.1-5.3); Red Cell Distribution Width 12.3 % (12.1-15.1); White Blood Count 5.5 10^3/uL (4.0-10.0)
[2022-08-02 08:49] LABS: Alanine Aminotransferase 17 U/L (0-41); Albumin Level 3.9 g/dL (3.5-5.2); Alkaline Phosphatase 147 U/L (40-130); Aspartate Amino Transferase 19 U/L (0-40); Blood Urea Nitrogen 13 mg/dL (8-23); Calcium 9.6 mg/dL (8.5-10.5); Carbon Dioxide 22 mmol/L (22-29); Chloride 99 mmol/L (98-107); Globulin 3.4 g/dL (1.3-4.6); Glucose 84 mg/dL (65-115); Osmolality Calculated 269 mOsm/kg (285-295); Prostate Specific Antigen 0.027 ng/mL (0-4); Sodium 130 mmol/L (136-145); Total Bilirubin 0.4 mg/dL (0.15-1.2); Total Protein 7.3 g/dL (6.6-8.7)
--- NOTE | 2022-08-25 13:36 | PC.PHAR ---
ABIRATERONE/PRED EDUCATION: MR HARRIS ARRIVED IN CLINIC TO RECEIVE ABIRATERONE/PREDNISONE EDUCATION. HE BROUGHT HIS MEDICATIONS WITH HIM. WE TALKED ABOUT HOW THESE DRUGS WORK AND HOW TO TAKE THEM. THE ABIRATERONE WILL BE TAKEN ONE TAB IN THE MORNING WITH A LOW FAT MEAL. THE PREDNISONE WILL BE TAKEN ONE TAB MORNING AND NIGHT. HE WILL START TREATMENT TOMORROW. WE TALKED ABOUT THE COMMON SIDE EFFECTS SUCH FATIGUE, ARTHRALGIA, HOT FLASHES, ETC. I ENCOURAGED HIM TO MONITOR HIS BLOOD PRESSURE AND BLOOD SUGAR AND TO CALL US WITH S/SX OF RESP INFECTION OR EDEMA, HEPATOTOXICITY. IF HE MISSES A DOSE HE IS TO SKIP IT AND START AT NEXT DOSE. HE WILL RETURN TO THE CLINIC IN ONE MONTH FOR FOLLOW UP WITH [facility] AND LABS.
== END 2022-08-28 23:59 | disposition home or self-care (01) ==
PROVIDERS: Internal Medicine Hematology & Oncology; PCP Emergency Medicine Emergency Medical Services; Visit Provider Radiology Radiation Oncology
DX: C61 Malignant neoplasm of prostate (principal); Z95.828 Presence of other vascular implants and grafts; Z87.891 Personal history of nicotine dependence; R59.0 Localized enlarged lymph nodes
CPT/HCPCS: 36415; 80053; 84153; 85025; 99213; 99214; 99215

== ENCOUNTER 2022-09-02 10:00 | Day surgery (SDC) | payer OTHER, SELFPAY ==
[2022-09-01 11:53] VITALS: BMI 34.7
[2022-09-02] VITALS (7 sets, daily range): BP systolic 133–156; BP diastolic 81–101; PULSE 58–83; RESP 16–18; TEMP 36.4–36.5; O2SAT 95–100
[2022-09-02] MEDS: sodium chloride 0.9% 1,000 ML 30 ML IV (10:54)
--- NOTE | 2022-09-02 11:39 | W.PM.OPSUD ---
Surgery/Procedure H&P Update DATE OF PROCEDURE: September 02, 2022 DATE H&P PERFORMED: 08/25/22 PREOP DIAGNOSIS: Mediport in place PLANNED PROCEDURE: Operation Date: 09/02/22 11:30 Proposed Procedures p Portacath Removal [id number](Not Applicable) - Roger Lam DO
[2022-09-02] MEDS: ceFAZolin 2,000 MG in sodium chloride 0.9% (plus) 50 ML 100 MG IV (12:07)
--- NOTE | 2022-09-02 12:16 | ANES.PREANE2 ---
Pre-Anesthetic Assessment Height/Weight: Height 1.75 m Weight 106.594 kg Temp Pulse Resp BP Pulse Ox O2 Del Method 97.6 F 71 18 156/98 96 09/02/22 10:50 09/02/22 10:50 09/02/22 10:50 09/02/22 10:50 09/02/22 10:50 09/02/22 10:50 Preop Diagnosis: Mediport in place Operation Date: 09/02/22 11:30 Proposed Procedures p Portacath Removal [id number](Not Applicable) - Roger Lam DO Familial anesthetic complications: none Was Beta Carley taken within 24 hours: N/A Was Clonidine taken within 24 hours: N/A Last intake: Intake Last Liquid Date 09/01/22 Last Liquid Time 20:00 Last Solid Date 09/01/22 Last Solid Time 20:00 Social No alcohol and No tobacco Exam alert, oriented x 3, clear to auscultation bilaterally and regular rate & rhythm Airway Submandibular: within normal limits Cervical ROM: within normal limits Mallampati: Class II Dentition: full GI Prostate CA Metabolic Morbid Obesity Anesthetic Plan ASA status: 3 Anesthesia: MAC Medications/Allergies Home Medications Medication Instructions Recorded Confirmed Last Taken Type cholecalciferol (vitamin D3) 10 10 mcg PO DAILY 02/04/22 09/02/22 09/01/22 History mcg (400 unit) capsule prednisone 5 mg tablet 5 mg PO BID #60 tabs 08/03/22 09/02/22 09/02/22 Rx tamsulosin 0.4 mg capsule (Flomax) 0.8 mg PO DAILY #60 caps 08/25/22 09/02/22 09/02/22 Rx abiraterone 250 mg tablet (Zytiga) 250 mg PO DAILY #28 tabs 09/01/22 09/02/22 09/02/22 Rx Allergies Allergy/AdvReac Type Severity Reaction Status Date / Time No Known Allergies Allergy Verified 09/02/22 10:39 Current Medications Generic Name Dose Route Start Last Admin Trade Name Freq PRN Reason Stop Dose Admin Sodium Chloride 1,000 mls @ 30 mls/hr 09/02/22 10:30 09/02/22 10:54 Sodium Chloride 0.9% IV 09/03/22 10:29 30 mls/hr .Q24H LAURI Administration PFSH Anesthesia Medical History Abnormal prostate exam Calculus of distal left ureter BILL (obstructive sleep apnea) Port-A-Cath in place 07/2022 Urolithiasis Surgical History Hx of colonoscopy 14 yrs ago Family History Family/Other Hypertension Cancer Uncle - prostate Aunt - Uterine Father , AT AGE 84 Hypertension CAD (coronary artery disease) Mother No problems noted. Denies family history of Diabetes Clotting disorder Dementia Hyperlipidemia Psychiatric illness Chronic kidney disease (CKD) Suicide Anesthesia complication Bleeding disorder Lung disease Stroke Social History Smoking and tobacco status: former smoker Quit status (tobacco): has quit using tobacco Year quit tobacco: 2006 Former quit date comment: 1ppd x 25 years Alcohol intake: former Marital status: Current occupational status: retired History of recent travel: No Data Anesthesia Cardiac Studies: No Data to Display
--- NOTE | 2022-09-02 12:33 | PM.OP ---
Operative Report Date of procedure: September 02, 2022 Pre-op diagnosis: Preop Diagnosis Mediport in place Post-op diagnosis: same Procedure done: Mediport removal Specimens removed/disposition: Mediport Surgeon: Dr. Roger Lam DO Anesthesia: Local Estimated blood loss (mL): 5 Complications: None apparent Brief History: This very pleasant 67-year-old gentleman who has a Mediport in place that has not been used. He desires removal. Mediport removal was indicated. Risks and benefits were explained and documented. Procedure: Patient was taken to the operating room and her right chest was prepped and draped in a sterile manner. 1% lidocaine with epinephrine was infiltrated around the MediPort and catheter. Using a 15 blade the previous incision was opened, the subcutaneous tissue was divided using electrocautery and MediPort along the catheter was dissected free from the surrounding subcutaneous tissue and removed entirely. The wound was irrigated with saline, hemostasis ensured with electrocautery. A figure of 8 stitch was placed in the catheter tunnel with 3-0 Vicryl. Subcutaneous tissue was approximated using 3-0 Vicryl suture and skin was closed using running subcuticular 4-0 Monocryl suture. 4x4 and sterile dressings were used as a pressure dressing. The patient was transferred to the recovery room in stable condition.
== END 2022-09-02 13:00 | disposition home or self-care (01) ==
PROVIDERS: PCP Emergency Medicine Emergency Medical Services; Visit Provider Surgery
PROC: (CPT 36589; principal; 2022-09-02 11:20)
DX: Z45.2 Encounter for adjustment and management of vascular access device (principal); Z85.46 Personal history of malignant neoplasm of prostate; E66.01 Morbid (severe) obesity due to excess calories; Z68.34 Body mass index [BMI] 34.0-34.9, adult; G47.33 Obstructive sleep apnea (adult) (pediatric); Z87.891 Personal history of nicotine dependence
CPT/HCPCS: 36590; J0690; J7030

== ENCOUNTER → 2022-09-15 14:05 | Outpatient (BNVA) | payer OTHER, SELFPAY | PROVIDERS: PCP Emergency Medicine Emergency Medical Services; Visit Provider Surgery | DX: C61 Malignant neoplasm of prostate (principal); Z98.890 Other specified postprocedural states | CPT/HCPCS: 99213 ==

== ENCOUNTER 2022-09-24 08:04 | Oncology outpatient (recurring) (ONCR) | payer OTHER, SELFPAY ==
[2022-09-24 08:30] LABS: Basophils % 0.4 %; Eosinophils # 0.1 10^3/uL (0.0-0.8); Eosinophils % 1.7 %; Hematocrit 44.6 % (42.0-52.0); Hemoglobin 14.7 g/dL (11.7-16.6); Lymphocytes # 0.9 10^3/uL (0.8-4.8); Lymphocytes % 16.1 %; Mean Corpuscular Hemoglobin 30.4 pg (28.0-34.0); Mean Corpuscular Volume 92.3 fl (80-94); Mean Platelet Volume 9.9 fL (7.4-10.4); Monocytes # 0.5 10^3/uL (0.2-0.9); Monocytes % 8.3 %; Neutrophils # 3.96 10^3/uL (1.8-7.7); Neutrophils % 72.9 %; Nucleated Red Blood Cells % 0 %; Platelet Count 175 10^3/cmm (130-400); Red Blood Count 4.83 10^6/uL (4.1-5.3); White Blood Count 5.4 10^3/uL (4.0-10.0)
[2022-09-24 08:55] LABS: Alanine Aminotransferase 15 U/L (0-41); Albumin Level 4.2 g/dL (3.5-5.2); Alkaline Phosphatase 140 U/L (40-130); Anion Gap 15.8 (5-19); Aspartate Amino Transferase 17 U/L (0-40); Blood Urea Nitrogen 10 mg/dL (8-23); Calcium 9.3 mg/dL (8.5-10.5); Carbon Dioxide 22 mmol/L (22-29); Chloride 102 mmol/L (98-107); Globulin 2.7 g/dL (1.3-4.6); Glucose 84 mg/dL (65-115); Osmolality Calculated 280 mOsm/kg (285-295); Potassium 3.8 mmol/L (3.5-5.1); Sodium 136 mmol/L (136-145); Total Bilirubin 0.3 mg/dL (0.15-1.2); Total Protein 6.9 g/dL (6.6-8.7)
[2022-09-24 09:05] LABS: Prostate Specific Antigen < 0.014 ng/mL (0-4)
== END 2022-09-28 23:59 | disposition home or self-care (01) ==
PROVIDERS: PCP Emergency Medicine Emergency Medical Services; Visit Provider Internal Medicine Hematology & Oncology
DX: C61 Malignant neoplasm of prostate (principal); Z79.52 Long term (current) use of systemic steroids; Z79.818 Long term (current) use of other agents affecting estrogen receptors and estrogen levels; Z79.899 Other long term (current) drug therapy; Z92.3 Personal history of irradiation; N28.1 Cyst of kidney, acquired; N40.0 Benign prostatic hyperplasia without lower urinary tract symptoms
CPT/HCPCS: 80053; 84153; 85025; 99214

== ENCOUNTER 2022-10-05 13:40 | Oncology outpatient (recurring) (ONCR) | payer OTHER, SELFPAY ==
[2022-10-05] MEDS: leuprolide 22.5 mg Kit IM (14:14)
[2022-10-05 14:35] VITALS: BP 141/92; PULSE 78; RESP 16; TEMP 36.1; O2SAT 97
== END 2022-10-26 23:59 | disposition home or self-care (01) ==
LOC: ONCMED 13:40
PROVIDERS: PCP Emergency Medicine Emergency Medical Services; Visit Provider Internal Medicine Hematology & Oncology
DX: C61 Malignant neoplasm of prostate (principal); Z79.818 Long term (current) use of other agents affecting estrogen receptors and estrogen levels; Z79.899 Other long term (current) drug therapy
CPT/HCPCS: 96402; J9217

== ENCOUNTER 2022-10-31 12:24 | Emergency (ER) | payer OTHER, SELFPAY ==
[2022-10-31 12:29] VITALS: BP 154/102; PULSE 89; RESP 16; TEMP 36.4; O2SAT 98; BMI 35.4
--- NOTE | 2022-10-31 12:38 | CTR_ITS ---
PROCEDURE INFORMATION: Exam: CT Abdomen And Pelvis Without Contrast Exam date and time: 10/31/2022 12:47 PM Age: 67 years old Clinical indication: Abdominal pain; Flank; Left; Patient HX: Prostate CA; Additional info: Left flank pain TECHNIQUE: Imaging protocol: Computed tomography of the abdomen and pelvis without contrast. Radiation optimization: All CT scans at this facility use at least one of these dose optimization techniques: automated exposure control; mA and/or kV adjustment per patient size (includes targeted exams where dose is matched to clinical indication); or iterative reconstruction. REPORTING DATA: Count of CT and Cardiac NM exams in prior 12 months: This patient has received 3 known CTs and 0 known cardiac nuclear medicine studies in the 12 months prior to the current study. COMPARISON: CT abdomen pelvis wo/w [id number] 03/08/2022 9:45 AM RADIATION DOSE METRICS: Total DLP (mGy-cm): 1058.73 FINDINGS: Lungs: Left lower lobe calcified pulmonary parenchymal granuloma. Heart: Minimal pericardial effusion. Coronary arteries: Atherosclerotic calcifications are present involving the RCA coronary artery. Liver: Normal. No mass. Gallbladder and bile ducts: Dependent intraluminal density is present in the nondistended gallbladder. Pancreas: Normal. No ductal dilation. Spleen: The spleen demonstrates several small calcifications consistent with healed granulomatous disease. Adrenal glands: Normal. No mass. Kidneys and ureters: No specific evidence of acute obstructive uropathy. Left renal 4.3 cm benign cyst. Right renal calculi (3), the largest in the anterior mid kidney measuring 6.1 mm. Left renal lower pole 2.1 mm calyceal calculus. Stomach and bowel: Unremarkable. No obstruction. No mucosal thickening. Appendix: The vermiform appendix is normal. Intraperitoneal space: No free air. No significant fluid collection. Vasculature: The iliac arteries show moderate bilateral atherosclerotic calcifications without evidence of aneurysm. Mild aortic atherosclerotic calcification with infrarenal abdominal aortic ectasia to 2.6 cm. Left pelvic calcified phleboliths. Lymph nodes: Small benign triangular subpleural lymph nodes of the right lower lobe at the lateral and posterior pleural. Urinary bladder: Interval focal posterior urinary bladder wall thickening measuring approximately 10 mm thickness, approximately 2.4 x 2.5 cm diameter (series 6, image 96; series 3, image 200). Reproductive: The prostate gland demonstrates nonspecific parenchymal calcifications. Bones/joints: Diffuse osteopenia. No destructive bony process identified. Mild T11 and T12 chronic vertebral body compression deformities, stable. Bilateral lower lumbar facet primary osteoarthritis. Lumbar spine vertebral body marginal osteophytes are noted at multiple levels. Soft tissues: Unremarkable. CT/CT kidney stone [id number] IMPRESSION: 1. Posteroinferior urinary bladder wall abnormality, uncertain etiology. Correlation with urinalysis and possibly cystoscopy recommended. 2. No specific evidence of acute obstructive uropathy. 3. Left renal benign cyst. No follow-up imaging is recommended. 4. Bilateral renal calyceal lithiasis. 5. Gallbladder sludge. 6. Chronic calcific prostatitis. 7. Coronary atherosclerosis. 8. Minimal pericardial effusion. COMMENTS: Consistent with the [employer]'s Incidental Findings Committee white paper (J Am Samira Radiol 2018): Any incidental renal lesion less than 1 cm or classified as too small to characterize, or any incidental cystic renal lesion characterized as simple-appearing, is likely benign. No follow-up imaging is recommended for these lesions per consensus recommendations based on imaging criteria.
--- NOTE | 2022-10-31 12:40 | W.ED.MALEGU ---
HPI - Male Genitourinary General: Chief complaint: Urogenital-Male Stated complaint: back pain/prostate cancer Time Seen by Provider: 10/31/22 12:33 Source: patient and family History of Present Illness: 67-year-old male who comes in with left flank pain. The pain started on Tuesday. Its been intermittent for the first couple of days but this morning it became more severe and has been constant. Pain now is in the left flank, radiating around into the left mid abdomen and down into his left lower quadrant. He states this is similar to the pain he had with his kidney stones. He is unable to find a comfortable position. He states the pain is severe. He tried a pain pill which she had had leftover without any improvement. He denies dysuria or hematuria. No fever. No vomiting. He has had kidney stones in the past and also has a history of metastatic prostate cancer and sees Dr. Longo Review of Systems General: Reports: Other (See HPI) PFSH ED PFSH: Medical History Abnormal prostate exam Calculus of distal left ureter BILL (obstructive sleep apnea) Port-A-Cath in place 07/2022 Urolithiasis Surgical History Hx of colonoscopy 14 yrs ago Family History Family/Other Hypertension Cancer Uncle - prostate Aunt - Uterine Father , AT AGE 84 Hypertension CAD (coronary artery disease) Mother No problems noted. Denies family history of Diabetes Clotting disorder Dementia Hyperlipidemia Psychiatric illness Chronic kidney disease (CKD) Suicide Anesthesia complication Bleeding disorder Lung disease Stroke Social History Smoking and tobacco status: former smoker Quit status (tobacco): has quit using tobacco Year quit tobacco: 2006 Former quit date comment: 1ppd x 25 years Alcohol intake: former Marital status: Current occupational status: retired Physical Exam Const: COMMON NORMALS: patient oriented x3 and healthy appearing; apparent distress (Patient appears uncomfortable due to pain) HENMT: OTHER: mucous membranes moist Eye: OTHER: Conjunctiva pink Resp: OTHER: No distress Cardio: OTHER: Regular rate GI: OTHER: Abdomen is soft, nontender, no rebound or guarding; he does have left CVA tenderness Extremity: OTHER: No swelling or tenderness Neuro: COMMON NORMALS: patient oriented x3, CN's II-XII intact bilaterally, moves all extremities, no focal motor deficits, no sensory deficits noted and deep tendon reflexes 2+ bilaterally MOTOR EXAM: 5/5 motor strength present throughout and Pronator motor function not present Course Vital Signs: Vital signs: Vital Signs Temperature 97.5 F L 10/31/22 12:29 Pulse Rate 89 10/31/22 12:29 Respiratory Rate 16 10/31/22 12:29 Blood Pressure 154/102 10/31/22 12:29 Pulse Oximetry 98 10/31/22 12:29 Oxygen Delivery Me thod 10/31/22 12:29 MDM - Male Medical Decision Making 67-year-old male who presents with left flank pain. The pain has been intermittent for 5 days but became constant this morning and much more severe and is now radiating down into the left side of his abdomen. Suspect ureteral stone/renal colic. Other differential includes musculoskeletal, pyelonephritis, diverticulitis, constipation, colitis We will start an IV, give him IV fluids, given Zofran for nausea and Dilaudid for pain but will obtain labs as well as a CT renal colic. After IV fluids and IV Dilaudid, the patient's pain is improved. He has been given IV Norflex as well. Urinalysis is negative for UTI. White blood cell count is normal. CT of the abdomen and pelvis does not show any ureterolithiasis or other explanation for left flank pain. Suspect that his pain is musculoskeletal in nature. He does have some thickening of the bladder wall which I discussed his results with him and verbalized that he needs to follow-up with his urologist. Patient's been instructed to return if he has increased pain, weakness, loss of bowel or bladder control. Medical Records I reviewed the patient's medical records. Lab Data I reviewed the patient's lab results. Patient's white blood cell count is normal at 7.3. Renal functions normal creatinine of 0.8. Electrolytes are normal. LFTs are normal. Urinalysis is negative for UTI. 10/31/22 13:00 10/31/22 13:00 Radiology Impressions Abdomen/Pelvis CT 10/31/22 12:38 IMPRESSION: 1. Posteroinferior urinary bladder wall abnormality, uncertain etiology. Correlation with urinalysis and possibly cystoscopy recommended. 2. No specific evidence of acute obstructive uropathy. 3. Left renal benign cyst. No follow-up imaging is recommended. 4. Bilateral renal calyceal lithiasis. 5. Gallbladder sludge. 6. Chronic calcific prostatitis. 7. Coronary atherosclerosis. 8. Minimal pericardial effusion. COMMENTS: Consistent with the [employer]'s Incidental Findings Committee white paper (J Am Samira Radiol 2018): Any incidental renal lesion less than 1 cm or classified as too small to characterize, or any incidental cystic renal lesion characterized as simple-appearing, is likely benign. No follow-up imaging is recommended for these lesions per consensus recommendations based on imaging criteria. Laboratory Results WBC 7.3 10^3/uL (4.0-10.0) 10/31/22 13:00 RBC 5.28 10^6/uL (4.1-5.3) 10/31/22 13:00 Hgb 16.2 g/dL (11.7-16.6) 10/31/22 13:00 Hct 48.3 % (42.0-52.0) 10/31/22 13:00 MCV 91.5 fl (80-94) 10/31/22 13:00 MCH 30.7 pg (28.0-34.0) 10/31/22 13:00 MCHC 33.5 g/dL (30.0-36.0) 10/31/22 13:00 RDW 12.8 % (12.1-15.1) 10/31/22 13:00 Plt Count 174 10^3/cmm (130-400) 10/31/22 13:00 MPV 10.1 fL (7.4-10.4) 10/31/22 13:00 Neut % (Auto) 85.0 % 10/31/22 13:00 Lymph % (Auto) 9.1 % 10/31/22 13:00 [place] % (Auto) 4.8 % 10/31/22 13:00 Eos % (Auto) 0.4 % 10/31/22 13:00 Baso % (Auto) 0.3 % 10/31/22 13:00 Neut # (Auto) 6.16 10^3/uL (1.8-7.7) 10/31/22 13:00 Lymph # (Auto) 0.7 10^3/uL (0.8-4.8) L 10/31/22 13:00 [place] # (Auto) 0.4 10^3/uL (0.2-0.9) 10/31/22 13:00 Eos # (Auto) 0.0 10^3/uL (0.0-0.8) 10/31/22 13:00 Baso # (Auto) 0.0 10^3/uL (0.0-0.1) 10/31/22 13:00 Nucleated RBC % (auto) 0 % 10/31/22 13:00 Nucleated RBCs # 0.0 /100WBC 10/31/22 13:00 Sodium 138 mmol/L (136-145) 10/31/22 13:00 Potassium 3.9 mmol/L (3.5-5.1) 10/31/22 13:00 Chloride 101 mmol/L (98-107) 10/31/22 13:00 Carbon Dioxide 25 mmol/L (22-29) 10/31/22 13:00 Anion Gap 15.9 (5-19) 10/31/22 13:00 BUN 13 mg/dL (8-23) 10/31/22 13:00 Creatinine 0.8 mg/dL (0.7-1.2) 10/31/22 13:00 GFR Calculation 97.0 mL/min (90-130) 10/31/22 13:00 Glucose 97 mg/dL (65-115) 10/31/22 13:00 Calculated Osmolality 286 mOsm/kg (285-295) 10/31/22 13:00 Calcium 9.8 mg/dL (8.5-10.5) 10/31/22 13:00 Total Bilirubin 0.5 mg/dL (0.15-1.2) 10/31/22 13:00 AST 16 U/L (0-40) 10/31/22 13:00 ALT 14 U/L (0-41) 10/31/22 13:00 Alkaline Phosphatase 140 U/L (40-130) H 10/31/22 13:00 Total Protein 7.4 g/dL (6.6-8.7) 10/31/22 13:00 Albumin 4.2 g/dL (3.5-5.2) 10/31/22 13:00 Globulin 3.2 g/dL (1.3-4.6) 10/31/22 13:00 Lipase 15 U/L (13-60) 10/31/22 13:00 Urine Color Yellow (Yellow) 10/31/22 14:10 Urine Appearance Cloudy (CLEAR) A 10/31/22 14:10 Urine pH 5 (5-7) 10/31/22 14:10 Ur Specific [place] 1.025 (1.005-1.030) 10/31/22 14:10 Urine Protein Neg (Negative) 10/31/22 14:10 Urine Glucose (UA) Norm (Normal) 10/31/22 14:10 Urine Ketones Negative (Negative) 10/31/22 14:10 Urine Blood Neg (Negative) 10/31/22 14:10 Urine Nitrate Negative (Negative) 10/31/22 14:10 Urine Bilirubin Neg (Negative) 10/31/22 14:10 Urine Urobilinogen Norm mg/dL (Negative) 10/31/22 14:10 Ur Leukocyte Esterase Negative (Negative) 10/31/22 14:10 Urine RBC Rare /hpf (0-2) 10/31/22 14:10 Urine WBC Rare /hpf (0-5) 10/31/22 14:10 Ur Squamous Epith Cells Rare /hpf (0-5) 10/31/22 14:10 Amorphous Sediment 2+ /hpf 10/31/22 14:10 Urine Bacteria Trace /hpf (NONE) 10/31/22 14:10 Urine Mucus 2+ /hpf 10/31/22 14:10 Discharge Plan Discharge Patient Disposition: Home Clinical Impression: Left flank pain, Bladder wall thickening Condition: Stable Prescriptions: New cyclobenzaprine 10 mg tablet 10 mg PO Q8H PRN (Reason: muscle spasm) Qty: 30 0RF naproxen sodium 550 mg tablet 550 mg PO Q12H PRN (Reason: pain) Qty: 20 0RF hydrocodone-acetaminophen 5-325 mg tablet 1 tab PO Q4H PRN (Reason: pain) Qty: 14 0RF No Action cholecalciferol (vitamin D3) 10 mcg (400 unit) capsule 10 mcg PO DAILY leuprolide (3 month) 22.5 mg syringe kit 22.5 mg IM .every 12 weeks tamsulosin [Flomax] 0.4 mg capsule 0.4 mg PO DAILY Qty: 30 2RF prednisone 5 mg tablet 5 mg PO BID Qty: 60 1RF abiraterone [Zytiga] 250 mg tablet 250 mg PO DAILY Qty: 28 0RF Rx Instructions: must be taken with or within 30 minutes of a low-fat breakfast hydrocodone-acetaminophen 5-325 mg tablet 1 tab PO Q6H PRN (Reason: pain) Qty: 10 0RF Discharge Orders: Discharge ED (Routine); Ordered 10/31/22 Ordered By: Shaneka Noriega Referrals: Alo Gudino DO [Primary Care Provider] - Discharge Diet: Advance as tolerated Discharge Activity: Resume usual activity Patient Instructions: Back Pain (ED), Opioid Safety, Pain Management Activity Restrictions/Additional Instructions: Ice to the sore area. Gently stretch those muscles. Home to rest. Avoid lifting or bending for the next few days until your pain is improved. Take the naproxen twice daily. Take the Flexeril 3 times daily as needed for muscle spasm. You can take the hydrocodone every 4-6 hours as needed for severe pain. Return if you have increased pain, weakness or loss of bowel or bladder control. Coding Level of Care Code ED [employer] Judge for Taye Da Silva
[2022-10-31] MEDS: sodium chloride 0.9% 1,000 ML 999 ML IV ×2 (13:08→14:20)
[2022-10-31] MEDS: HYDROmorphone 1 mg/mL INJ 1 mL 0.5 MG IVP ×2 (13:10→15:28)
[2022-10-31] MEDS: ondansetron 2 mg/ML SDV 2 mL 4 MG IVP (13:11)
[2022-10-31 13:26] LABS: Basophils % 0.3 %; Eosinophils % 0.4 %; Hematocrit 48.3 % (42.0-52.0); Hemoglobin 16.2 g/dL (11.7-16.6); Lymphocytes # 0.7 10^3/uL (0.8-4.8); Lymphocytes % 9.1 %; Mean Corpuscular HGB Conc 33.5 g/dL (30.0-36.0); Mean Corpuscular Hemoglobin 30.7 pg (28.0-34.0); Mean Corpuscular Volume 91.5 fl (80-94); Mean Platelet Volume 10.1 fL (7.4-10.4); Monocytes # 0.4 10^3/uL (0.2-0.9); Monocytes % 4.8 %; Neutrophils # 6.16 10^3/uL (1.8-7.7); Nucleated Red Blood Cells % 0 %; Platelet Count 174 10^3/cmm (130-400); Red Blood Count 5.28 10^6/uL (4.1-5.3); Red Cell Distribution Width 12.8 % (12.1-15.1); White Blood Count 7.3 10^3/uL (4.0-10.0)
[2022-10-31 13:43] LABS: Alanine Aminotransferase 14 U/L (0-41); Albumin Level 4.2 g/dL (3.5-5.2); Alkaline Phosphatase 140 U/L (40-130); Anion Gap 15.9 (5-19); Aspartate Amino Transferase 16 U/L (0-40); Blood Urea Nitrogen 13 mg/dL (8-23); Calcium 9.8 mg/dL (8.5-10.5); Carbon Dioxide 25 mmol/L (22-29); Chloride 101 mmol/L (98-107); Globulin 3.2 g/dL (1.3-4.6); Glucose 97 mg/dL (65-115); Lipase 15 U/L (13-60); Osmolality Calculated 286 mOsm/kg (285-295); Potassium 3.9 mmol/L (3.5-5.1); Sodium 138 mmol/L (136-145); Total Bilirubin 0.5 mg/dL (0.15-1.2); Total Protein 7.4 g/dL (6.6-8.7)
[2022-10-31] MEDS: orphenadrine 30 mg/mL Inj 2 mL 60 MG IVP (14:21)
[2022-10-31 14:44] LABS: Add Urine Microscopic? YES; Bacteria Urine TRACE /hpf; Bilirubin Urine Neg (Negative); Blood Urine Neg (Negative); Glucose Urine UA Norm (Normal); Ketones Urine Negative (Negative); Leukocyte Esterase Urine Negative (Negative); Mucus Urine 2+ /hpf; Nitrate Urine Negative (Negative); Protein Urine Neg (Negative); RBC Urine RARE /hpf (0-2); Specific Gravity, Urine 1.025 (1.005-1.030); Squamous Epithelial Cell Urine RARE /hpf (0-5); Urine Appearance Cloudy (CLEAR); Urine Color Yellow (Yellow); Urobilinogen Urine Norm (Negative); WBC Urine RARE /hpf (0-5); pH Urine 5 (5-7)
[2022-10-31 14:45] LABS: Amorphous Sediment Urine 2+ /hpf
[2022-10-31 15:28] VITALS: RESP 14
== END 2022-10-31 16:03 | disposition home or self-care (01) ==
PROVIDERS: Emergency Provider Emergency Medicine; PCP Emergency Medicine Emergency Medical Services
DX: R10.9 Unspecified abdominal pain (principal); N20.0 Calculus of kidney; N41.1 Chronic prostatitis; I25.10 Atherosclerotic heart disease of native coronary artery without angina pectoris; Z87.891 Personal history of nicotine dependence
CPT/HCPCS: 51798; 74176; 80053; 81001; 83690; 85025; 96361; 96374; 96375; 96376; 99285; J1170; J2360; J2405; J7030

== ENCOUNTER 2022-11-25 13:26 | Outpatient (CLI) | payer OTHER, SELFPAY ==
--- NOTE | 2022-11-25 14:24 | XR_ITS ---
WS: [id number] Exam: XR KUB [id number] Date/Time of Exam: 11/25/2022 2:32 PM Reason For Exam: STONES No bowel obstruction or free air. 3 mm calcification superimposes the right kidney and apparently rep resents a known renal stone. No sign of organ enlargement. Regional bony structures are intact. Nonsp ecific bilateral pelvic calcifications. XR/XR KUB [id number] IMPRESSION: 1. No acute abdominal finding. 2. 3 mm calcification seen over the right renal silhouette apparently represent ing a known renal stone.
== END 2022-11-25 13:27 | disposition home or self-care (01) ==
LOC: RAD 13:28
PROVIDERS: PCP Emergency Medicine Emergency Medical Services; Visit Provider Urology
DX: R10.9 Unspecified abdominal pain (principal); C61 Malignant neoplasm of prostate; N20.9 Urinary calculus, unspecified
CPT/HCPCS: 74018; 81003; 99213

== ENCOUNTER 2022-12-20 09:59 | Oncology outpatient (recurring) (ONCR) | payer OTHER, SELFPAY ==
[2022-12-20 11:31] LABS: Alanine Aminotransferase 14 U/L (0-41); Albumin Level 4.1 g/dL (3.5-5.2); Alkaline Phosphatase 146 U/L (40-130); Anion Gap 11.1 (5-19); Aspartate Amino Transferase 15 U/L (0-40); Blood Urea Nitrogen 15 mg/dL (8-23); Calcium 9.4 mg/dL (8.5-10.5); Carbon Dioxide 28 mmol/L (22-29); Chloride 101 mmol/L (98-107); Globulin 2.7 g/dL (1.3-4.6); Glomerular Filtration Rate 84.7 mL/min (90-130); Glucose 111 mg/dL (65-115); Osmolality Calculated 284 mOsm/kg (285-295); Potassium 4.1 mmol/L (3.5-5.1); Sodium 136 mmol/L (136-145); Total Bilirubin 0.4 mg/dL (0.15-1.2); Total Protein 6.8 g/dL (6.6-8.7)
[2022-12-20 11:33] LABS: Prostate Specific Antigen < 0.014 ng/mL (0-4)
== END 2022-12-26 23:59 | disposition home or self-care (01) ==
PROVIDERS: PCP Emergency Medicine Emergency Medical Services; Visit Provider Internal Medicine Hematology & Oncology
DX: C61 Malignant neoplasm of prostate (principal); Z79.818 Long term (current) use of other agents affecting estrogen receptors and estrogen levels; Z79.899 Other long term (current) drug therapy; Z79.52 Long term (current) use of systemic steroids; Z92.3 Personal history of irradiation
CPT/HCPCS: 36415; 80053; 84153; 99214

== ENCOUNTER 2022-12-28 13:50 | Oncology outpatient (recurring) (ONCR) | payer OTHER, SELFPAY ==
[2022-12-28] MEDS: leuprolide 22.5 mg Kit IM (14:15)
[2022-12-28 14:16] VITALS: BP 141/101; PULSE 94; TEMP 36.1; O2SAT 99
== END 2023-01-26 23:59 | disposition home or self-care (01) ==
LOC: ONCMED 13:51
PROVIDERS: PCP Emergency Medicine Emergency Medical Services; Visit Provider Internal Medicine Hematology & Oncology
DX: C61 Malignant neoplasm of prostate (principal)
CPT/HCPCS: 96402; J9217

== ENCOUNTER 2023-04-05 12:47 | Oncology outpatient (recurring) (ONCR) | payer OTHER, SELFPAY ==
[2023-04-05 12:57] VITALS: BP 102/66; PULSE 101; RESP 18; TEMP 36.8; O2SAT 96
[2023-04-05 13:21] LABS: Basophils % 0.3 %; Eosinophils % 0.4 %; Hemoglobin 14.4 g/dL (11.7-16.6); Lymphocytes # 0.9 10^3/uL (0.8-4.8); Lymphocytes % 11.1 %; Mean Corpuscular HGB Conc 34.3 g/dL (30.0-36.0); Mean Corpuscular Hemoglobin 31.4 pg (28.0-34.0); Mean Corpuscular Volume 91.5 fl (80-94); Mean Platelet Volume 10.3 fL (7.4-10.4); Monocytes # 0.4 10^3/uL (0.2-0.9); Monocytes % 5.6 %; Neutrophils # 6.47 10^3/uL (1.8-7.7); Neutrophils % 82.1 %; Nucleated Red Blood Cells % 0 %; Platelet Count 169 10^3/cmm (130-400); Red Blood Count 4.59 10^6/uL (4.1-5.3); Red Cell Distribution Width 12.2 % (12.1-15.1); White Blood Count 7.9 10^3/uL (4.0-10.0)
[2023-04-05 13:48] LABS: Alanine Aminotransferase 18 U/L (0-41); Albumin Level 4.2 g/dL (3.5-5.2); Alkaline Phosphatase 148 U/L (40-130); Anion Gap 15.9 (5-19); Aspartate Amino Transferase 22 U/L (0-40); Blood Urea Nitrogen 15 mg/dL (8-23); Calcium 9.5 mg/dL (8.5-10.5); Carbon Dioxide 23 mmol/L (22-29); Chloride 105 mmol/L (98-107); Globulin 2.6 g/dL (1.3-4.6); Glucose 117 mg/dL (65-115); Osmolality Calculated 292 mOsm/kg (285-295); Potassium 3.9 mmol/L (3.5-5.1); Sodium 140 mmol/L (136-145); Total Bilirubin 0.6 mg/dL (0.15-1.2); Total Protein 6.8 g/dL (6.6-8.7)
[2023-04-05 13:50] LABS: Prostate Specific Antigen < 0.014 ng/mL (0-4)
[2023-04-05 13:53] LABS: Testosterone Total < 2.5 ng/dL (193-740)
[2023-04-05] MEDS: leuprolide 22.5 mg Kit IM (15:40)
== END 2023-04-28 23:59 | disposition home or self-care (01) ==
PROVIDERS: Nurse Practitioner; PCP Emergency Medicine Emergency Medical Services; Visit Provider Internal Medicine Hematology & Oncology
DX: C61 Malignant neoplasm of prostate (principal); Z79.52 Long term (current) use of systemic steroids; Z79.818 Long term (current) use of other agents affecting estrogen receptors and estrogen levels; Z79.899 Other long term (current) drug therapy; R59.0 Localized enlarged lymph nodes; M89.9 Disorder of bone, unspecified
CPT/HCPCS: 36415; 80053; 84153; 84403; 85025; 96402; 99214; J9217

== ENCOUNTER 2023-06-06 12:42 | Outpatient (CLI) | payer OTHER, SELFPAY ==
--- NOTE | 2023-06-06 13:00 | XR_ITS ---
WS: [id number] SCREENING DEXA SCAN [place] CLINICAL INFORMATION: Follow up COMPARISON: None. FINDINGS: The L1-L4 bone mineral density measures 1.236 g/cm2. This corresponds to a T score score of 0.1 and Z score of -0.1. Left femoral neck bone mineral density measures 0.913 g/cm2. This corresponds to a T score of -1.3 an d Z score of -1.2. Right femoral neck bone mineral density measures 0.954 g/cm2. This corresponds to a T score -1.0of an d Z score of -0.9. Mean femoral neck bone mineral density measures 0.933 g/cm2. This corresponds to a T score of -1.2 an d Z score of -1.1. IMPRESSION: Normal bone mineralization lumbar spine. Osteopenia femoral necks. Patient's FRAX calculated 10 year probability for major osteoporotic fracture is 10.9% and osteoporot ic hip fracture is 2.0%.
== END 2023-06-06 12:43 | disposition home or self-care (01) ==
PROVIDERS: PCP Emergency Medicine Emergency Medical Services; Visit Provider Internal Medicine Medical Oncology
DX: C61 Malignant neoplasm of prostate (principal); Z79.890 Hormone replacement therapy; M85.852 Other specified disorders of bone density and structure, left thigh; M85.851 Other specified disorders of bone density and structure, right thigh
CPT/HCPCS: 77080

== ENCOUNTER 2023-06-28 11:32 | Oncology outpatient (recurring) (ONCR) | payer OTHER, SELFPAY ==
[2023-06-28 12:00] VITALS: BP 129/80; PULSE 90; RESP 16; TEMP 36.7; O2SAT 97
[2023-06-28 12:06] LABS: Basophils % 0.1 %; Eosinophils # 0.1 10^3/uL (0.0-0.8); Eosinophils % 0.8 %; Hematocrit 40.3 % (37-53); Lymphocytes # 0.8 10^3/uL (0.8-4.8); Lymphocytes % 10.4 %; Mean Corpuscular HGB Conc 33.7 g/dL (30-55); Mean Corpuscular Hemoglobin 31.3 pg (27-33); Mean Corpuscular Volume 92.6 fl (82-101); Mean Platelet Volume 10.1 fL (7.4-10.4); Monocytes # 0.4 10^3/uL (0.2-0.9); Monocytes % 5.8 %; Neutrophils # 5.95 10^3/uL (1.8-7.7); Neutrophils % 82.3 %; Nucleated Red Blood Cells % 0 %; Platelet Count 150 10^3/cmm (157-399); Red Blood Count 4.35 10^6/uL (3.85-5.65); Red Cell Distribution Width 12.3 % (12.1-15.1); White Blood Count 7.23 10^3/uL (3.29-11.43)
[2023-06-28 12:38] LABS: Alanine Aminotransferase 21 U/L (0-41); Albumin Level 4.2 g/dL (3.5-5.2); Alkaline Phosphatase 164 U/L (40-130); Anion Gap 13.5 (5-19); Aspartate Amino Transferase 20 U/L (0-40); Blood Urea Nitrogen 15 mg/dL (8-23); Calcium 9.7 mg/dL (8.5-10.5); Carbon Dioxide 24 mmol/L (22-29); Chloride 103 mmol/L (98-107); Globulin 2.5 g/dL (1.3-4.6); Glomerular Filtration Rate 84.4 mL/min (90-130); Glucose 114 mg/dL (65-115); Osmolality Calculated 286 mOsm/kg (285-295); Potassium 3.5 mmol/L (3.5-5.1); Sodium 137 mmol/L (136-145); Total Bilirubin 0.7 mg/dL (0.15-1.2); Total Protein 6.7 g/dL (6.6-8.7)
[2023-06-28 12:39] LABS: Prostate Specific Antigen < 0.014 ng/mL (0-4)
[2023-06-28] MEDS: leuprolide 22.5 mg Kit IM (14:17)
== END 2023-06-28 23:59 | disposition home or self-care (01) ==
PROVIDERS: PCP Emergency Medicine Emergency Medical Services; Visit Provider Internal Medicine Medical Oncology
DX: C61 Malignant neoplasm of prostate (principal); M85.80 Other specified disorders of bone density and structure, unspecified site; Z79.899 Other long term (current) drug therapy; Z51.11 Encounter for antineoplastic chemotherapy
CPT/HCPCS: 36415; 80053; 84153; 85025; 96402; 99214; J9217

== ENCOUNTER 2023-09-20 12:52 | Oncology outpatient (recurring) (ONCR) | payer OTHER, SELFPAY ==
[2023-09-20 13:26] VITALS: BP 114/75; PULSE 97; RESP 17; TEMP 36.9; O2SAT 98
[2023-09-20 13:44] LABS: Basophils % 0.3 %; Eosinophils # 0.1 10^3/uL (0.0-0.8); Eosinophils % 0.8 %; Hematocrit 43.4 % (37-53); Lymphocytes # 0.9 10^3/uL (0.8-4.8); Lymphocytes % 12.1 %; Mean Corpuscular HGB Conc 34.1 g/dL (30-55); Mean Corpuscular Hemoglobin 31.2 pg (27-33); Mean Corpuscular Volume 91.4 fl (82-101); Mean Platelet Volume 9.9 fL (7.4-10.4); Monocytes # 0.6 10^3/uL (0.2-0.9); Monocytes % 7.6 %; Neutrophils # 5.95 10^3/uL (1.8-7.7); Neutrophils % 78.8 %; Nucleated Red Blood Cells % 0 %; Platelet Count 168 10^3/cmm (157-399); Red Blood Count 4.75 10^6/uL (3.85-5.65); Red Cell Distribution Width 12.3 % (12.1-15.1); White Blood Count 7.54 10^3/uL (3.29-11.43)
[2023-09-20 14:11] LABS: Alanine Aminotransferase 39 U/L (0-41); Albumin Level 4.1 g/dL (3.5-5.2); Alkaline Phosphatase 176 U/L (40-130); Anion Gap 14.1 (5-19); Aspartate Amino Transferase 25 U/L (0-40); Blood Urea Nitrogen 14 mg/dL (8-23); Calcium 10.2 mg/dL (8.5-10.5); Carbon Dioxide 25 mmol/L (22-29); Chloride 103 mmol/L (98-107); Globulin 3.1 g/dL (1.3-4.6); Glomerular Filtration Rate 84.4 mL/min (90-130); Glucose 102 mg/dL (65-115); Osmolality Calculated 287 mOsm/kg (285-295); Potassium 4.1 mmol/L (3.5-5.1); Sodium 138 mmol/L (136-145); Testosterone Total 2.5 ng/dL (193-740); Total Bilirubin 0.5 mg/dL (0.15-1.2); Total Protein 7.2 g/dL (6.6-8.7)
[2023-09-20 14:12] LABS: Prostate Specific Antigen < 0.014 ng/mL (0-4)
[2023-09-20] MEDS: leuprolide 22.5 mg Kit IM (15:01)
== END 2023-09-28 23:59 | disposition home or self-care (01) ==
PROVIDERS: PCP Emergency Medicine Emergency Medical Services; Visit Provider Internal Medicine Medical Oncology
DX: C61 Malignant neoplasm of prostate (principal); Z79.899 Other long term (current) drug therapy; Z53.9 Procedure and treatment not carried out, unspecified reason
CPT/HCPCS: 99214; 36415; 80053; 84153; 84403; 85025; 96402; J9217

== ENCOUNTER 2023-10-05 07:23 | Outpatient (CLI) | payer OTHER, SELFPAY ==
--- NOTE | 2023-10-05 08:30 | CTR_ITS ---
PROCEDURE INFORMATION: Exam: CT Chest With Contrast; Diagnostic Exam date and time: 10/05/2023 8:35 AM Age: 68 years old Clinical indication: Condition or disease; Other: Prostate cancer; Follow-up oncological assessment; Prior surgery; Surgery date: 6+ months; Surgery type: Port in out; Additional info: Surveillance TECHNIQUE: Imaging protocol: Diagnostic computed tomography of the chest with contrast. Radiation optimization: All CT scans at this facility use at least one of these dose optimization techniques: automated exposure control; mA and/or kV adjustment per patient size (includes targeted exams where dose is matched to clinical indication); or iterative reconstruction. Contrast material: OMNI 350; Contrast volume: 95 ml; Contrast route: INTRAVENOUS (IV); COMPARISON: CT chest w con* [id number] 04/22/2022 11:13 AM RADIATION DOSE METRICS: Total DLP (mGy-cm): 1537.38 FINDINGS: Lungs: Unremarkable. No consolidation. No masses. Pleural spaces: Unremarkable. No pneumothorax. No pleural effusion. Heart: Unremarkable. No cardiomegaly. No pericardial effusion. Lymph nodes: Unremarkable. No enlarged lymph nodes. Vasculature: Unremarkable. No aortic aneurysm. Bones/joints: Unremarkable. No acute fracture. Soft tissues: Unremarkable. PROCEDURE INFORMATION: Exam: CT Abdomen And Pelvis With Contrast Exam date and time: 10/05/2023 8:35 AM Age: 68 years old Clinical indication: Condition or disease; Other: Prostate cancer; Follow-up oncological assessment; Prior surgery; Surgery date: 6+ months; Surgery type: Port in out; Additional info: Surveillance TECHNIQUE: Imaging protocol: Computed tomography of the abdomen and pelvis with contrast. Radiation optimization: All CT scans at this facility use at least one of these dose optimization techniques: automated exposure control; mA and/or kV adjustment per patient size (includes targeted exams where dose is matched to clinical indication); or iterative reconstruction. Contrast material: OMNI 350; Contrast volume: 95 ml; Contrast route: INTRAVENOUS (IV); COMPARISON: CT kidney stone [id number] 10/31/2022 12:47 PM RADIATION DOSE METRICS: Total DLP (mGy-cm): 1537.38 FINDINGS: Lungs: Lung bases are clear. No pleural effusion. Liver: Normal. No mass. Gallbladder and bile ducts: Normal. No calcified stones. No ductal dilation. Pancreas: Normal. No ductal dilation. Spleen: Normal. No splenomegaly. Adrenal glands: Normal. No mass. Kidneys and ureters: There is a 4.7 cm cyst in the left kidney. A few tiny stones are noted in the right kidney. Stomach and bowel: Unremarkable. No obstruction. No mucosal thickening. Appendix: No evidence of appendicitis. Intraperitoneal space: Unremarkable. No free air. No significant fluid collection. Vasculature: Unremarkable. No abdominal aortic aneurysm. Lymph nodes: Unremarkable. No enlarged lymph nodes. Urinary bladder: Unremarkable as visualized. Reproductive: Unremarkable as visualized. Bones/joints: Unremarkable. No acute fracture. Soft tissues: Unremarkable. CT/CT chest abdpel w/*[id number] IMPRESSION: There is no evidence of active neoplastic disease. IMPRESSION: 1. There is no evidence of active neoplastic disease. 2. A benign renal cyst or cysts have been detected. No further follow-up imaging is required. 3. Right renal stones COMMENTS: Consistent with the [employer]'s Incidental Findings Committee white paper (J Am Samira Radiol 2018): Any incidental renal lesion less than 1 cm or classified as too small to characterize, or any incidental cystic renal lesion characterized as simple-appearing, is likely benign. No follow-up imaging is recommended for these lesions per consensus recommendations based on imaging criteria.
[2023-10-05] MEDS: iohexol 350 mg/mL 500 mL Btl (per mL) PO (08:31)
[2023-10-05] MEDS: iohexol 350 mg/mL 500 mL Btl (per mL) IV (08:40)
== END 2023-10-05 07:24 | disposition home or self-care (01) ==
LOC: RAD 07:23
PROVIDERS: PCP Emergency Medicine Emergency Medical Services; Visit Provider Nurse Practitioner Family
DX: C61 Malignant neoplasm of prostate (principal); N28.1 Cyst of kidney, acquired; N20.0 Calculus of kidney
CPT/HCPCS: 71260; 74177; Q9967

== ENCOUNTER 2023-12-13 12:34 | Oncology outpatient (recurring) (ONCR) | payer OTHER, SELFPAY ==
[2023-12-13 13:27] LABS: Basophils % 0.1 %; Eosinophils # 0.1 10^3/uL (0.0-0.8); Eosinophils % 0.7 %; Hematocrit 39.5 % (37-53); Lymphocytes # 0.8 10^3/uL (0.8-4.8); Lymphocytes % 11.1 %; Mean Corpuscular HGB Conc 34.2 g/dL (30-55); Mean Corpuscular Hemoglobin 31.5 pg (27-33); Mean Corpuscular Volume 92.3 fl (82-101); Mean Platelet Volume 10.1 fL (7.4-10.4); Monocytes # 0.5 10^3/uL (0.2-0.9); Monocytes % 6.4 %; Neutrophils # 6.11 10^3/uL (1.8-7.7); Neutrophils % 81.3 %; Nucleated Red Blood Cells % 0 %; Platelet Count 164 10^3/cmm (157-399); Red Blood Count 4.28 10^6/uL (3.85-5.65); Red Cell Distribution Width 12.4 % (12.1-15.1); White Blood Count 7.51 10^3/uL (3.29-11.43)
[2023-12-13 14:03] LABS: Alanine Aminotransferase 13 U/L (0-41); Alkaline Phosphatase 189 U/L (40-130); Aspartate Amino Transferase 16 U/L (0-40); Blood Urea Nitrogen 15 mg/dL (8-23); Calcium 9.5 mg/dL (8.5-10.5); Carbon Dioxide 23 mmol/L (22-29); Chloride 106 mmol/L (98-107); Creatinine Clr Calc Pharmacy 101.0703; Globulin 2.7 g/dL (1.3-4.6); Glomerular Filtration Rate 84.4 mL/min (90-130); Glucose 96 mg/dL (65-115); Osmolality Calculated 293 mOsm/kg (285-295); Sodium 141 mmol/L (136-145); Testosterone Total 2.5 ng/dL (193-740); Thyroid Stimulating Hormone 0.82 uIU/mL (0.27-4.20); Total Bilirubin 0.6 mg/dL (0.15-1.2); Total Protein 6.7 g/dL (6.6-8.7)
[2023-12-13 14:05] LABS: Prostate Specific Antigen < 0.014 ng/mL (0-4)
[2023-12-13] MEDS: leuprolide 22.5 mg Kit IM (14:48)
== END 2023-12-27 23:59 | disposition home or self-care (01) ==
PROVIDERS: Nurse Practitioner Family; PCP Emergency Medicine Emergency Medical Services; Visit Provider Internal Medicine Medical Oncology
DX: C61 Malignant neoplasm of prostate (principal); Z79.899 Other long term (current) drug therapy; Z53.9 Procedure and treatment not carried out, unspecified reason
CPT/HCPCS: 36415; 80053; 84153; 84403; 84443; 85025; 96402; 99214; J9217

== ENCOUNTER 2024-03-06 12:34 | Oncology outpatient (recurring) (ONCR) | payer OTHER, SELFPAY ==
[2024-03-06 12:50] LABS: Basophils % 0.2 %; Eosinophils % 0.3 %; Hematocrit 42.4 % (37-53); Lymphocytes # 0.9 10^3/uL (0.8-4.8); Lymphocytes % 10.7 %; Mean Corpuscular HGB Conc 33.7 g/dL (30-55); Mean Corpuscular Volume 91.8 fl (82-101); Mean Platelet Volume 9.8 fL (7.4-10.4); Monocytes # 0.5 10^3/uL (0.2-0.9); Monocytes % 6.3 %; Neutrophils # 7.05 10^3/uL (1.8-7.7); Nucleated Red Blood Cells % 0 %; Platelet Count 185 10^3/cmm (157-399); Red Blood Count 4.62 10^6/uL (3.85-5.65); Red Cell Distribution Width 12.7 % (12.1-15.1)
[2024-03-06 13:23] LABS: Alanine Aminotransferase 14 U/L (0-41); Albumin Level 4.1 g/dL (3.5-5.2); Alkaline Phosphatase 156 U/L (40-130); Anion Gap 16.9 (5-19); Aspartate Amino Transferase 17 U/L (0-40); Blood Urea Nitrogen 13 mg/dL (8-23); Calcium 9.9 mg/dL (8.5-10.5); Carbon Dioxide 22 mmol/L (22-29); Chloride 104 mmol/L (98-107); Globulin 2.8 g/dL (1.3-4.6); Glomerular Filtration Rate 84.4 mL/min (90-130); Glucose 98 mg/dL (65-115); Lactate Dehydrogenase 170 U/L (135-225); Osmolality Calculated 288 mOsm/kg (285-295); Potassium 3.9 mmol/L (3.5-5.1); Sodium 139 mmol/L (136-145); Total Bilirubin 0.4 mg/dL (0.15-1.2); Total Protein 6.9 g/dL (6.6-8.7)
[2024-03-06 13:26] LABS: Prostate Specific Antigen < 0.014 ng/mL (0-4)
[2024-03-06 13:27] LABS: Testosterone Total < 2.5 ng/dL (193-740)
[2024-03-06 15:00] VITALS: BP 122/81; PULSE 73; RESP 17; TEMP 36.4; O2SAT 96
[2024-03-06] MEDS: leuprolide 22.5 mg Kit IM (15:16)
== END 2024-03-28 23:59 | disposition home or self-care (01) ==
PROVIDERS: Internal Medicine; PCP Emergency Medicine Emergency Medical Services; Visit Provider Internal Medicine Medical Oncology
DX: C61 Malignant neoplasm of prostate (principal); Z79.899 Other long term (current) drug therapy; Z51.12 Encounter for antineoplastic immunotherapy; Z79.818 Long term (current) use of other agents affecting estrogen receptors and estrogen levels
CPT/HCPCS: 36415; 80053; 83615; 84153; 84403; 85025; 96402; 99213; J9217

== ENCOUNTER 2024-05-29 12:20 | Oncology outpatient (recurring) (ONCR) | payer OTHER, SELFPAY ==
[2024-05-29 12:39] LABS: Basophils % 0.4 %; Eosinophils % 0.4 %; Hematocrit 41.2 % (37-53); Lymphocytes # 0.8 10^3/uL (0.8-4.8); Lymphocytes % 11.4 %; Mean Corpuscular Hemoglobin 30.9 pg (27-33); Mean Corpuscular Volume 90.9 fl (82-101); Monocytes # 0.4 10^3/uL (0.2-0.9); Monocytes % 5.4 %; Neutrophils # 6.08 10^3/uL (1.8-7.7); Neutrophils % 82.3 %; Nucleated Red Blood Cells % 0 %; Platelet Count 155 10^3/cmm (157-399); Red Blood Count 4.53 10^6/uL (3.85-5.65); Red Cell Distribution Width 12.5 % (12.1-15.1); White Blood Count 7.39 10^3/uL (3.29-11.43)
[2024-05-29 13:10] LABS: Alanine Aminotransferase 11 U/L (0-41); Albumin Level 4.2 g/dL (3.5-5.2); Alkaline Phosphatase 143 U/L (40-130); Anion Gap 16.6 (5-19); Aspartate Amino Transferase 18 U/L (0-40); Blood Urea Nitrogen 14 mg/dL (8-23); Calcium 9.6 mg/dL (8.5-10.5); Carbon Dioxide 21 mmol/L (22-29); Chloride 106 mmol/L (98-107); Globulin 2.5 g/dL (1.3-4.6); Glomerular Filtration Rate 84.4 mL/min (90-130); Glucose 105 mg/dL (65-115); Osmolality Calculated 291 mOsm/kg (285-295); Potassium 3.6 mmol/L (3.5-5.1); Sodium 140 mmol/L (136-145); Testosterone Total 2.5 ng/dL (193-740); Total Bilirubin 0.7 mg/dL (0.15-1.2); Total Protein 6.7 g/dL (6.6-8.7)
[2024-05-29 13:12] LABS: Prostate Specific Antigen < 0.014 ng/mL (0-4)
[2024-05-29 15:04] VITALS: BP 141/78; PULSE 74; RESP 18; TEMP 36.6; O2SAT 98
[2024-05-29] MEDS: leuprolide 22.5 mg Kit IM (15:04)
== END 2024-06-28 23:59 | disposition home or self-care (01) ==
PROVIDERS: Nurse Practitioner Family; PCP Emergency Medicine Emergency Medical Services; Visit Provider Internal Medicine Medical Oncology
DX: C61 Malignant neoplasm of prostate; Z79.899 Other long term (current) drug therapy; Z79.818 Long term (current) use of other agents affecting estrogen receptors and estrogen levels; Z51.11 Encounter for antineoplastic chemotherapy; Z95.828 Presence of other vascular implants and grafts; Z87.891 Personal history of nicotine dependence; Z92.3 Personal history of irradiation; Z79.52 Long term (current) use of systemic steroids; R35.1 Nocturia
CPT/HCPCS: 36415; 80053; 84153; 84403; 85025; 96402; 99214; J9217

== ENCOUNTER 2024-06-12 14:17 | Outpatient (CLI) | payer OTHER, SELFPAY ==
--- NOTE | 2024-06-12 14:30 | XR_ITS ---
WS: [id number] SCREENING DEXA SCAN [place] CLINICAL INFORMATION: ADT treatment COMPARISON: 2022 FINDINGS: The L1-L4 bone mineral density measures 1.224 g/cm2. This corresponds to a T score score of 0.0 and Z score of -0.2. Left femoral neck bone mineral density measures 0.911 g/cm2. This corresponds to a T score of -1.3 an d Z score of -1.2. Right femoral neck bone mineral density measures 0.931 g/cm2. This corresponds to a T score -1.2of an d Z score of -1.0. Mean femoral neck bone mineral density measures 0.921 g/cm2. This corresponds to a T score of -1.3 an d Z score of -1.1. XR/XR DEXA axial skeleton* [id number] IMPRESSION: Normal bone mineralization lumbar spine. Osteopenia femoral necks. Patient's FRAX calculated 10 year probability for major osteoporotic fracture i s 11.8% and osteoporotic hip fracture is 2.6%. Bone mineral density lumbar spine decreased -1.0% Bone mineral density femoral necks decreased -1.3%
== END 2024-06-12 14:18 | disposition home or self-care (01) ==
LOC: RAD 14:18
PROVIDERS: PCP Nurse Practitioner Family; Visit Provider Nurse Practitioner Family
DX: Z13.820 Encounter for screening for osteoporosis (principal); C61 Malignant neoplasm of prostate; M85.80 Other specified disorders of bone density and structure, unspecified site
CPT/HCPCS: 77080

== ENCOUNTER 2024-08-20 08:37 | Oncology outpatient (recurring) (ONCR) | payer OTHER, SELFPAY ==
[2024-08-20 09:02] LABS: Basophils % 0.3 %; Eosinophils # 0.1 10^3/uL (0.0-0.8); Eosinophils % 1.7 %; Hematocrit 41.1 % (37-53); Lymphocytes # 1.1 10^3/uL (0.8-4.8); Lymphocytes % 14.9 %; Mean Corpuscular HGB Conc 33.6 g/dL (30-55); Mean Corpuscular Hemoglobin 30.5 pg (27-33); Mean Corpuscular Volume 90.7 fl (82-101); Mean Platelet Volume 9.9 fL (7.4-10.4); Monocytes # 0.6 10^3/uL (0.2-0.9); Neutrophils # 5.41 10^3/uL (1.8-7.7); Neutrophils % 74.3 %; Nucleated Red Blood Cells % 0 %; Platelet Count 146 10^3/cmm (157-399); Red Blood Count 4.53 10^6/uL (3.85-5.65); Red Cell Distribution Width 12.4 % (12.1-15.1); White Blood Count 7.27 10^3/uL (3.29-11.43)
[2024-08-20 09:31] LABS: Alanine Aminotransferase 10 U/L (0-41); Albumin Level 3.9 g/dL (3.5-5.2); Alkaline Phosphatase 148 U/L (40-130); Anion Gap 15.5 (5-19); Aspartate Amino Transferase 13 U/L (0-40); Blood Urea Nitrogen 12 mg/dL (8-23); Calcium 9.2 mg/dL (8.5-10.5); Carbon Dioxide 23 mmol/L (22-29); Chloride 104 mmol/L (98-107); Creatinine Clr Calc Pharmacy 107.3389; Globulin 2.5 g/dL (1.3-4.6); Glomerular Filtration Rate 96.4 mL/min (90-130); Glucose 103 mg/dL (65-115); Osmolality Calculated 288 mOsm/kg (285-295); Potassium 3.5 mmol/L (3.5-5.1); Sodium 139 mmol/L (136-145); Testosterone Total 2.5 ng/dL (193-740); Total Bilirubin 0.5 mg/dL (0.15-1.2); Total Protein 6.4 g/dL (6.6-8.7)
[2024-08-20 09:39] LABS: Prostate Specific Antigen < 0.014 ng/mL (0-4)
[2024-08-20] MEDS: leuprolide 22.5 mg Kit IM (11:26)
== END 2024-08-28 23:59 | disposition home or self-care (01) ==
PROVIDERS: Nurse Practitioner Family; PCP Nurse Practitioner Family; Visit Provider Internal Medicine Medical Oncology
DX: Z51.11 Encounter for antineoplastic chemotherapy (principal); C61 Malignant neoplasm of prostate; Z79.899 Other long term (current) drug therapy; Z79.818 Long term (current) use of other agents affecting estrogen receptors and estrogen levels; Z95.828 Presence of other vascular implants and grafts; Z87.891 Personal history of nicotine dependence; Z92.3 Personal history of irradiation; Z79.52 Long term (current) use of systemic steroids; R35.1 Nocturia
CPT/HCPCS: 36415; 80053; 84153; 84403; 85025; 96402; 99214; J9217

== ENCOUNTER 2024-10-04 12:25 | Emergency (ER) | payer OTHER, MEDICARE, SELFPAY ==
[2024-10-04 12:52] VITALS: BP 129/77; PULSE 82; RESP 18; TEMP 36.3; O2SAT 96; BMI 35.4
[2024-10-04 13:48] LABS: Basophils % 0.3 %; Eosinophils % 0.2 %; Hematocrit 41.1 % (37-53); Lymphocytes # 0.9 10^3/uL (0.8-4.8); Lymphocytes % 8.9 %; Mean Corpuscular HGB Conc 32.6 g/dL (30-55); Mean Corpuscular Hemoglobin 30.2 pg (27-33); Mean Corpuscular Volume 92.8 fl (82-101); Mean Platelet Volume 10.4 fL (7.4-10.4); Monocytes # 0.7 10^3/uL (0.2-0.9); Monocytes % 7.1 %; Neutrophils # 8.17 10^3/uL (1.8-7.7); Neutrophils % 83.1 %; Nucleated Red Blood Cells % 0 %; Platelet Count 172 10^3/cmm (157-399); Red Blood Count 4.43 10^6/uL (3.85-5.65); Red Cell Distribution Width 12.5 % (12.1-15.1); White Blood Count 9.83 10^3/uL (3.29-11.43)
[2024-10-04 14:04] LABS: Alanine Aminotransferase 12 U/L (0-41); Albumin Level 3.9 g/dL (3.5-5.2); Alkaline Phosphatase 133 U/L (40-130); Anion Gap 17.1 (5-19); Aspartate Amino Transferase 18 U/L (0-40); Blood Urea Nitrogen 14 mg/dL (8-23); Calcium 10.1 mg/dL (8.5-10.5); Carbon Dioxide 23 mmol/L (22-29); Chloride 101 mmol/L (98-107); Creatinine Clr Calc Pharmacy 79.2352; Globulin 2.8 g/dL (1.3-4.6); Glomerular Filtration Rate 66.8 mL/min (90-130); Glucose 119 mg/dL (65-115); Lipase 17 U/L (13-60); Osmolality Calculated 286 mOsm/kg (285-295); Potassium 4.1 mmol/L (3.5-5.1); Sodium 137 mmol/L (136-145); Total Bilirubin 0.6 mg/dL (0.15-1.2); Total Protein 6.7 g/dL (6.6-8.7)
== END 2024-10-04 13:50 | disposition left against medical advice (07) ==
LOC: ER 12:28
PROVIDERS: Emergency Medicine; Emergency Provider Family Medicine; PCP Nurse Practitioner Family
DX: Z53.21 Procedure and treatment not carried out due to patient leaving prior to being seen by health care provider (principal)
CPT/HCPCS: 36415; 80053; 83690; 85025

== ENCOUNTER 2024-11-19 12:43 | Oncology outpatient (recurring) (ONCR) | payer OTHER, SELFPAY ==
[2024-11-19 13:09] LABS: Basophils % 0.3 %; Eosinophils % 0.6 %; Hematocrit 39.8 % (37-53); Lymphocytes # 0.9 10^3/uL (0.8-4.8); Lymphocytes % 12.9 %; Mean Corpuscular HGB Conc 33.7 g/dL (30-55); Mean Corpuscular Hemoglobin 30.4 pg (27-33); Mean Corpuscular Volume 90.2 fl (82-101); Mean Platelet Volume 9.9 fL (7.4-10.4); Monocytes # 0.5 10^3/uL (0.2-0.9); Monocytes % 6.9 %; Neutrophils % 78.9 %; Nucleated Red Blood Cells % 0 %; Platelet Count 157 10^3/cmm (157-399); Red Blood Count 4.41 10^6/uL (3.85-5.65); Red Cell Distribution Width 12.8 % (12.1-15.1); White Blood Count 6.97 10^3/uL (3.29-11.43)
[2024-11-19 13:33] LABS: Alanine Aminotransferase 10 U/L (0-41); Albumin Level 4.2 g/dL (3.5-5.2); Alkaline Phosphatase 135 U/L (40-130); Anion Gap 17.1 (5-19); Aspartate Amino Transferase 17 U/L (0-40); Blood Urea Nitrogen 13 mg/dL (8-23); Calcium 9.7 mg/dL (8.5-10.5); Carbon Dioxide 21 mmol/L (22-29); Chloride 107 mmol/L (98-107); Globulin 2.6 g/dL (1.3-4.6); Glomerular Filtration Rate 96.4 mL/min (90-130); Glucose 93 mg/dL (65-115); Osmolality Calculated 292 mOsm/kg (285-295); Potassium 4.1 mmol/L (3.5-5.1); Sodium 141 mmol/L (136-145); Total Bilirubin 0.6 mg/dL (0.15-1.2); Total Protein 6.8 g/dL (6.6-8.7)
[2024-11-19 13:38] LABS: Prostate Specific Antigen < 0.014 ng/mL (0-4); Testosterone Total < 2.5 ng/dL (193-740)
[2024-11-19] MEDS: leuprolide 22.5 mg Kit IM (14:20)
== END 2024-11-26 23:59 | disposition home or self-care (01) ==
PROVIDERS: Nurse Practitioner; PCP Nurse Practitioner Family; Visit Provider Internal Medicine Medical Oncology
DX: Z51.11 Encounter for antineoplastic chemotherapy (principal); C61 Malignant neoplasm of prostate; Z79.818 Long term (current) use of other agents affecting estrogen receptors and estrogen levels; Z87.891 Personal history of nicotine dependence; Z79.51 Long term (current) use of inhaled steroids; C79.51 Secondary malignant neoplasm of bone
CPT/HCPCS: 36415; 80053; 84153; 84403; 85025; 96402; 99214; J9217

== ENCOUNTER 2025-02-19 11:13 | Oncology outpatient (recurring) (ONCR) | payer OTHER, SELFPAY ==
[2025-02-19 11:35] LABS: Basophils % 0.2 %; Eosinophils # 0.1 10^3/uL (0.0-0.8); Eosinophils % 0.6 %; Hematocrit 41.3 % (37-53); Lymphocytes # 0.9 10^3/uL (0.8-4.8); Lymphocytes % 9.5 %; Mean Corpuscular HGB Conc 33.9 g/dL (30-55); Mean Corpuscular Hemoglobin 30.9 pg (27-33); Mean Corpuscular Volume 91.2 fl (82-101); Mean Platelet Volume 10.4 fL (7.4-10.4); Monocytes # 0.6 10^3/uL (0.2-0.9); Monocytes % 6.3 %; Neutrophils # 7.43 10^3/uL (1.8-7.7); Neutrophils % 82.8 %; Nucleated Red Blood Cells % 0 %; Platelet Count 180 10^3/cmm (157-399); Red Blood Count 4.53 10^6/uL (3.85-5.65); White Blood Count 8.96 10^3/uL (3.29-11.43)
[2025-02-19 12:10] LABS: Alanine Aminotransferase 12 U/L (0-41); Albumin Level 4.2 g/dL (3.5-5.2); Alkaline Phosphatase 153 U/L (40-130); Anion Gap 19.7 (5-19); Aspartate Amino Transferase 16 U/L (0-40); Blood Urea Nitrogen 20 mg/dL (8-23); Calcium 10.4 mg/dL (8.5-10.5); Carbon Dioxide 20 mmol/L (22-29); Chloride 101 mmol/L (98-107); Globulin 3.1 g/dL (1.3-4.6); Glomerular Filtration Rate 66.8 mL/min (90-130); Glucose 128 mg/dL (65-115); Osmolality Calculated 288 mOsm/kg (285-295); Potassium 3.7 mmol/L (3.5-5.1); Sodium 137 mmol/L (136-145); Total Bilirubin 0.5 mg/dL (0.15-1.2); Total Protein 7.3 g/dL (6.6-8.7)
[2025-02-19 12:12] LABS: Prostate Specific Antigen < 0.014 ng/mL (0-4); Testosterone Total < 2.5 ng/dL (193-740)
[2025-02-19] MEDS: leuprolide 22.5 mg Kit IM (14:09)
== END 2025-02-25 23:59 | disposition home or self-care (01) ==
PROVIDERS: Internal Medicine Medical Oncology; PCP Nurse Practitioner Family; Visit Provider Nurse Practitioner Family
DX: Z51.11 Encounter for antineoplastic chemotherapy (principal); C61 Malignant neoplasm of prostate; Z79.818 Long term (current) use of other agents affecting estrogen receptors and estrogen levels; Z87.891 Personal history of nicotine dependence; Z79.51 Long term (current) use of inhaled steroids; C79.51 Secondary malignant neoplasm of bone
CPT/HCPCS: 80053; 84153; 84403; 85025; 96402; 99213; J9217

== ENCOUNTER 2025-05-14 10:41 | Oncology outpatient (recurring) (ONCR) | payer OTHER, SELFPAY ==
[2025-05-14 11:03] LABS: Hematocrit 37.7 % (37-53); Hemoglobin 12.70 g/dL (11.27-16.99); Mean Corpuscular HGB Conc 33.7 g/dL (30-55); Mean Corpuscular Hemoglobin 30.0 pg (27-33); Mean Corpuscular Volume 89.1 fl (82-101); Nucleated Red Blood Cells % 0 %; Platelet Count 174 10^3/cmm (157-399); Red Blood Count 4.23 10^6/uL (3.85-5.65); White Blood Count 5.69 10^3/uL (3.29-11.43)
[2025-05-14 11:31] LABS: Alanine Aminotransferase 21 U/L (0-41); Albumin Level 4.1 g/dL (3.5-5.2); Alkaline Phosphatase 140 U/L (40-130); Anion Gap 19.1 (5-19); Aspartate Amino Transferase 25 U/L (0-40); Blood Urea Nitrogen 13 mg/dL (8-23); Calcium 9.7 mg/dL (8.5-10.5); Carbon Dioxide 19 mmol/L (22-29); Chloride 102 mmol/L (98-107); Globulin 2.7 g/dL (1.3-4.6); Glucose 149 mg/dL (65-115); Osmolality Calculated 285 mOsm/kg (285-295); Potassium 4.1 mmol/L (3.5-5.1); Sodium 136 mmol/L (136-145); Total Protein 6.8 g/dL (6.6-8.7)
[2025-05-14 11:35] LABS: Prostate Specific Antigen < 0.014 ng/mL (0-4)
[2025-05-14] MEDS: leuprolide 22.5 mg Kit IM (13:12)
== END 2025-05-28 23:59 | disposition home or self-care (01) ==
PROVIDERS: PCP Nurse Practitioner Family; Visit Provider Nurse Practitioner Family
DX: Z51.11 Encounter for antineoplastic chemotherapy (principal); C61 Malignant neoplasm of prostate; M85.80 Other specified disorders of bone density and structure, unspecified site; N20.0 Calculus of kidney; Z79.818 Long term (current) use of other agents affecting estrogen receptors and estrogen levels; Z87.891 Personal history of nicotine dependence; Z95.828 Presence of other vascular implants and grafts; Z79.52 Long term (current) use of systemic steroids; Z79.899 Other long term (current) drug therapy
CPT/HCPCS: 36415; 80053; 84153; 84403; 85025; 96402; 99214; J9217